=== PATIENT | female | born 1970 | race Caucasian/White ===

== ENCOUNTER → 2018-05-28 | Outpatient (CLI) | payer BC ==
[~2018-05-28] MED LIST: ACHD5005 PO; CYCL10TA9 PO; LVT.1T PO
--- NOTE | 2018-05-28 18:32 | Diagnostic Imaging Report ---
EXAMINATION: Bilateral knees. INDICATION: Primary osteoarthritis. FINDINGS: Three views of each knee joint were obtained. There are no prior studies available for comparison. There is no fracture, dislocation, or acute bony abnormality evident. The knee joints are fairly well maintained. There may be mild narrowing of the medial compartments and the patellofemoral spaces bilaterally. The soft tissues are unremarkable. IMPRESSION: 1. There is no evidence for an acute bony abnormality of either knee joint. 2. There is mild degenerative disease involving the medial compartments and patellofemoral spaces of each knee. Dictated by: Dictated on workstation # [id number]
== END ==
LOC: RAD FS 15:39
PROVIDERS: ATTEND Internal Medicine Rheumatology
DX: M17.0 Bilateral primary osteoarthritis of knee (principal)

== ENCOUNTER 2018-11-07 10:40 | Emergency (ER) | payer BC ==
[~2018-11-07] VITALS: Ht 162.6 cm; Wt 114.3 kg
--- OUTSIDE RECORDS SUMMARY | 2018-11-07 11:04 | XMS REPORT ---
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, Active 470140522 Problem Systemic lupus erythematosus M32.9 Sep, Active 44385662 ALLERGIES No Known Allergies ENCOUNTERS Encounter Location Date Diagnosis [address] [address] Jun, Morbid obesity E66.01 ; Impacted cerumen of both ears H61.23 ; Otalgia of right ear H92.01 ; Hypothyroidism E03.9 ; Systemic lupus erythematosus M32.9 and Urticarial vasculitis M31.[address] [address] May, Hypothyroidism, unspecified type E03.9 [facility] [address] [address] May, [address] [address] May, Hyperthyroidism E05.90 [facility] [address] [address] May, Hyperthyroidism E05.90 [facility] [address] [address] Mar, [facility] [id number] [place] [address] Mar, [facility] [address] [facility] [id number] [place] [address] August, [facility] [address] [facility] [id number] [address] Sep, IMMUNIZATIONS No Known Immunizations SOCIAL HISTORY Never Assessed REASON FOR VISIT Right Ear Pain, Bilat Leg Swelling/Knee Pain PLAN OF CARE Activity Details Follow Up prn Reason: VITAL SIGNS Height [id number] in 2018-06-26 Weight 265lb lbs 2018-06-26 BMI 45.46 kg/m2 2018-06-26 Blood pressure systolic 120 mmHg 2018-06-26 Blood pressure diastolic 84 mmHg 2018-06-26 MEDICATIONS Medication Instructions Dosage Frequency Start Date End Date Duration Status Ibuprofen 800 MG Apr, Active Synthroid 200 MCG Orally Once a day 1 tablet on an empty stomach in the morning 24h May, 30 day(s) Active Folic Acid 1 MG Orally Once a day 1 tablet 24h 30 day(s) Active Methotrexate 2.5 MG as directed Active Citalopram Hydrobromide 20 MG TAKE 1 TABLET BY MOUTH ONCE DAILY AT BEDTIME 30 Active RESULTS No Results PROCEDURES Procedure Date Ordered Result Body Site EAR IRRIGATION June 26, 2018 INSTRUCTIONS MEDICATIONS ADMINISTERED No Known Medications MEDICAL (GENERAL) HISTORY Type Description Date Medical History Systemic lupus erythematosus Medical History Hypothyroidism Medical History Urticarial vasculitis Medical History Hyperthyroidism
[2018-11-07] MEDS ORDERED: LORazepam 0.5 MG (ATIVAN) TABLET PO STA (11:42)
[2018-11-07 12:27] LABS: BASOPHILS % (AUTO) 1 % (0-10); EOSINOPHILS % (AUTO) 0 % (0-10); HEMATOCRIT 35 % (35-52); HEMOGLOBIN 10.9 G/DL (11.5-16.0); LYMPHOCYTES # (AUTO) 1.5 X 10^3 (1.0-4.0); LYMPHOCYTES % (AUTO) 31 % (12-44); MEAN CORPUSCULAR HEMOGLOBIN 29 PG (25-34); MEAN CORPUSCULAR HGB CONC 31 G/DL (32-36); MEAN CORPUSCULAR VOLUME 92 FL (80-99); MEAN PLATELET VOLUME 9.5 FL (7.4-10.4); MONOCYTES # (AUTO) 0.2 X 10^3 (0.0-1.0); MONOCYTES % (AUTO) 3 % (0-12); NEUTROPHILS # (AUTO) 3.2 X 10^3 (1.8-7.8); NEUTROPHILS % (AUTO) 65 % (42-75); PLATELET COUNT 255 10^3/uL (130-400); RED CELL DISTRIBUTION WIDTH 19.1 % (10.0-14.5); WHITE BLOOD COUNT 4.9 10^3/uL (4.3-11.0)
[2018-11-07] MEDS ORDERED: methylPREDNISolone 125 MG (Solu-MEDROL) VIAL IVP ONE (12:45)
--- NOTE | 2018-11-07 12:45 | ED Integumentary General ---
General Chief Complaint: Skin/Wound Problems Stated Complaint: YEE FOOT BLISTERS Nursing Triage Note: PT HAS LUPUS AND REPORTS A "FLARE UP" PT IS ON METHOTREXATE AND TOOK IT LAST PM. Source: patient Exam Limitations: no limitations History of Present Illness Date Seen by Provider: Nov 07, 2018 Time Seen by Provider: 11:00 Initial Comments Patient is a 48-year-old female with history of lupus who presents with painful blisters to bilateral lower extremities spinning 3 days ago. Patient's currently on weekly methotrexate, azathioprine and completed a course of steroids 1 week ago. .. Blisters painful touch. There is no surrounding cellulitis or skin softening. She also was treated recently for urinary tract infection with Macrobid. Patient has fever chills, nausea vomiting sweats, flank pain, urinary frequency urgency dysuria hematuria. No other acute symptoms or complaints. 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 [facility] Timing/Duration: week Severity: moderate Location: feet, extremities Possible Cause: no cause identified Associated Symptoms: blisters Allergies and Home Medications Allergies Coded Allergies: No Known Drug Allergies (Unverified , 09/27/11) Home Medications Cyclobenzaprine Hcl 10 Mg Tablet, 1 EACH PO HS, (Reported) Hydrocodone Bit/Acetaminophen 1 Each Tablet, 1 EACH PO HS, (Reported) Levothyroxine Sodium 100 Mcg Tablet, 175 MG PO DAILY, (Reported) Patient Home Medication List Home Medication List Reviewed: Yes Review of Systems Review of Systems Constitutional: no symptoms reported EENTM: no symptoms reported Respiratory: no symptoms reported, dyspnea on exertion Gastrointestinal: no symptoms reported Genitourinary: no symptoms reported Musculoskeletal: see HPI Skin: see HPI, other Psychiatric/Neurological: See HPI Endocrine: See HPI Hematologic/Lymphatic: See HPI Past Glrrpan-Ywapwf-Xydhvk Hx Past Med/Social Hx: Reviewed Nursing Past Med/Soc Hx Patient Social History Alcohol Use: Denies Use Recreational Drug Use: No Smoking Status: Current Everyday Smoker Type Used: Cigarettes 2nd Hand Smoke Exposure: No Recent Foreign Travel: No Contact w/Someone Who Travel: No Recent Infectious Disease Expo: No Recent Hopitalizations: No Physical Abuse: No Sexual Abuse: No Fear: No Seasonal Allergies Seasonal Allergies: No Past Medical History Surgeries: No Respiratory: No Cardiac: No Neurological: No Reproductive Disorders: No Sexually Transmitted Disease: No Genitourinary: No Gastrointestinal: Yes Gastroesophageal Reflux Musculoskeletal: Yes (ARTHRITIS) Endocrine: Yes Lupus HEENT: No Cancer: No Psychosocial: No Integumentary: Yes Recent Skin Changes Blood Disorders: No Physical Exam Vital Signs Vital Signs - First Documented 11/07/18 11:11 Temp 98.0 Pulse 95 Resp 18 B/P (MAP) 141/92 (108) Capillary Refill : Less Than 3 Seconds General Appearance: WD/WN, no apparent distress HEENT: PERRL/EOMI, normal ENT inspection Neck: non-tender, full range of motion, supple Cardiovascular: normal peripheral pulses, regular rate, rhythm Respiratory: chest non-tender, lungs clear, normal breath sounds Gastrointestinal: normal bowel sounds, non tender, soft Back: normal inspection Extremities: normal range of motion 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, no motor/sensory deficits, oriented x 3 Skin: other (extensive blistering to bilateral lower extremities including the dorsum of feet, no surrounding cellulitis, tissue sloughing or drainage.) Progress/Results/Core Measures Results/Orders Lab Results Laboratory Tests Test 11/07/18 12:09 Range/Units White Blood Count 4.9 4.3-11.0 10^3/uL Red Blood Count 3.78 L 4.35-5.85 10^6/uL Hemoglobin 10.9 L 11.5-16.0 G/DL Hematocrit 35 35-52 % Mean Corpuscular Volume 92 80-99 FL Mean Corpuscular Hemoglobin 29 25-34 PG Mean Corpuscular Hemoglobin Concent 31 L 32-36 G/DL Red Cell Distribution Width 19.1 H 10.0-14.5 % Platelet Count 255 130-400 10^3/uL Mean Platelet Volume 9.5 7.4-10.4 FL Neutrophils (%) (Auto) 65 42-75 % Lymphocytes (%) (Auto) 31 12-44 % Monocytes (%) (Auto) 3 0-12 % Eosinophils (%) (Auto) 0 0-10 % Basophils (%) (Auto) 1 0-10 % Neutrophils # (Auto) 3.2 1.8-7.8 X 10^3 Lymphocytes # (Auto) 1.5 1.0-4.0 X 10^3 Monocytes # (Auto) 0.2 0.0-1.0 X 10^3 Eosinophils # (Auto) 0.0 0.0-0.3 10^3/uL Basophils # (Auto) 0.0 0.0-0.1 10^3/uL My Orders Orders - HENNA PULIDO DO Cbc With Automated Diff (11/07/18 11:18) Comprehensive Metabolic Panel (11/07/18 11:18) Hcg,Qualitative Serum (11/07/18 11:31) Blood Culture (11/07/18 11:31) Hs C Reactive Protein (11/07/18 11:36) Blood Culture (11/07/18 11:36) Lorazepam Tablet (Ativan Tablet) (11/07/18 11:42) Methylprednisolone Sod Succ (Solu-Medrol (11/07/18 12:45) Vital Signs/I&O 11/07/18 11:11 Temp 98.0 Pulse 95 Resp 18 B/P (MAP) 141/92 (108) Blood Pressure Mean: 108 Departure Communication (Admissions) Suspect lupus flare versus medication reaction.IV steroids given. No clear source of infection. Will transfer to [facility] for patient admission and rheumatology consult. Impression Primary Impression: Skin bulla Disposition: XFER SHT-TRM HOSP Condition: Stable Transfer Method of Transfer: EMS Departure-Patient Inst. Referrals: CIPRIANO SWIFT MD (PCP/Family) Primary Care Physician HENNA PULIDO DO Nov 07, 2018 12:45
[2018-11-07 12:46] LABS: ALANINE AMINOTRANSFERASE 8 U/L (0-55); ALBUMIN 3.6 GM/DL (3.2-4.5); ALKALINE PHOSPHATASE 73 U/L (40-136); BILIRUBIN,TOTAL 0.2 MG/DL (0.1-1.0); BUN/CREATININE RATIO 9; CALCIUM 8.5 MG/DL (8.5-10.1); CARBON DIOXIDE 24 MMOL/L (21-32); CHLORIDE 101 MMOL/L (98-107); GFR ESTIMATED > 60; GLUCOSE 98 MG/DL (70-105); POTASSIUM 3.6 MMOL/L (3.6-5.0); SODIUM 139 MMOL/L (135-145); TOTAL PROTEIN 7.6 GM/DL (6.4-8.2)
--- NOTE | 2018-11-07 14:33 | NUR ---
BARBARA NICOLAS BANNER 7118, NA CORTES FOR REPORT AT [phone].
[2018-11-07 15:05] VITALS: BP 135/79
[2018-11-07 15:06] VITALS: BP 135/79
== END 2018-11-07 15:13 | disposition short-term general hospital (02) ==
LOC: EDUNIT# 10:40 → ER FS 10:42
DX: R23.8 Other skin changes (principal); M32.9 Systemic lupus erythematosus, unspecified; K21.9 Gastro-esophageal reflux disease without esophagitis; F17.210 Nicotine dependence, cigarettes, uncomplicated
CPT/HCPCS: 36415; 80053; 84703; 85025; 86141; 87040; 96374

== ENCOUNTER 2019-02-27 00:53 | Day surgery (SDC) | payer BC ==
[2019-02-27] VITALS (9 sets, daily range): BP systolic 94–123; BP diastolic 55–80
[~2019-02-27] VITALS: Ht 162.5 cm; Wt 114.8 kg
[2019-02-27] MEDS ORDERED: morphine INJ 10 MG/ML 1ML (SYR OR VIAL) IVP STA (01:27)
[2019-02-27 01:29] LABS: BASOPHILS % (AUTO) 0 % (0-10); EOSINOPHILS % (AUTO) 0 % (0-10); HEMATOCRIT 39 % (35-52); HEMOGLOBIN 12.7 G/DL (11.5-16.0); LYMPHOCYTES # (AUTO) 0.4 X 10^3 (1.0-4.0); LYMPHOCYTES % (AUTO) 6 % (12-44); MEAN CORPUSCULAR HEMOGLOBIN 29 PG (25-34); MEAN CORPUSCULAR HGB CONC 32 G/DL (32-36); MEAN CORPUSCULAR VOLUME 89 FL (80-99); MEAN PLATELET VOLUME 8.8 FL (7.4-10.4); MONOCYTES # (AUTO) 0.2 X 10^3 (0.0-1.0); MONOCYTES % (AUTO) 2 % (0-12); NEUTROPHILS # (AUTO) 6.2 X 10^3 (1.8-7.8); NEUTROPHILS % (AUTO) 91 % (42-75); PLATELET COUNT 239 10^3/uL (130-400); RED CELL DISTRIBUTION WIDTH 17.3 % (10.0-14.5); WHITE BLOOD COUNT 6.8 10^3/uL (4.3-11.0)
[2019-02-27] MEDS ORDERED: HOLD METFORMIN - RECEIVED CONTRAST 20 ML VIAL IV SCH (01:30)
[2019-02-27] MEDS ORDERED: IOHEXOL 350 MG/ML 100 ML (OMNIPAQUE 350) VIAL IV ONE (01:30)
[2019-02-27] MEDS ORDERED: ONDANSETRON 4 MG/2 ML (SDV) Z0FRAN IVP ONE (01:30)
[2019-02-27] MEDS ORDERED: NS 100 ML (IVPB) BAG IV ONE (01:30)
[2019-02-27] MEDS ORDERED: NS IV 1000 ML 1,000 ML IV SCH (01:30)
--- NOTE | 2019-02-27 01:38 | ED Abdominal Pain ---
General Chief Complaint: Abdominal/GI Problems Stated Complaint: ABD PAIN Nursing Triage Note: PT TO ROOM FS01 VIA W/C WITH C/O ABD PAIN STARTING AT 1700 YESTERDAY. PT REPORTS "SEVERE, SEVERE, SEVERE" ABD PAIN RATING PAIN 20/10 ON A 0/10 PAIN SCALE. PT REPORTS HAVING A HIGH TOLERANCE FOR PAIN AND SHE "CAN'T HANDLE THIS". PT REPORTS HAVING LUPUS AND HAS HAD "MULTIPLE PANIC ATTACKS" THIS EVENING BECAUSE OF THE PAIN. PT REPORTS SHIVERING AND FEELING COLD. Sepsis Screen: No Definite Risk Source of Information: Patient Exam Limitations: No Limitations History of Present Illness Date Seen by Provider: Feb 27, 2019 Time Seen by Provider: 01:30 Initial Comments The patient is a 48-year-old female who presents for abdominal pain which started approximately 8 hours ago. She states the pain began after she was at a store and her children were misbehaving. She states that she has also had multiple panic attacks this evening. States that after getting home from the store she was shivering and felt cold. She reports some pain to the right lateral abdomen which is now radiating to the right lower quadrant. She has had a kidney stone in the past and states this feels somewhat similar. She reports a history of lupus as well. She is alert and oriented 4, appears anxious, but is in no apparent distress. She denies fever, rectal bleeding, pelvic pain/bleeding/discharge, chest pain or shortness of breath, palpitations, diarrhea, or syncope. Severity/Quality: Severe Location: RLQ Radiation: No Radiation Activities at Onset: None Associated Symptoms: Fever/Chills (chills) Allergies and Home Medications Allergies Coded Allergies: No Known Drug Allergies (Unverified , 09/27/11) Home Medications Cyclobenzaprine Hcl 10 Mg Tablet, 1 EACH PO HS, (Reported) Hydrocodone Bit/Acetaminophen 1 Each Tablet, 1 EACH PO HS, (Reported) Levothyroxine Sodium 100 Mcg Tablet, 175 MG PO DAILY, (Reported) Patient Home Medication List Home Medication List Reviewed: Yes Review of Systems Review of Systems Constitutional: no symptoms reported EENTM: No Symptoms Reported Respiratory: No Symptoms Reported Cardiovascular: No Symptoms Reported Gastrointestinal: Abdominal Pain Genitourinary: No Symptoms Reported Musculoskeletal: no symptoms reported Skin: no symptoms reported Psychiatric/Neurological: No Symptoms Reported Endocrine: No Symptoms Reported Hematologic/Lymphatic: No Symptoms Reported All Other Systems Reviewed Negative Unless Noted: Yes Past Vbntbpi-Sdfhds-Bgkeit Hx Past Med/Social Hx: Reviewed Nursing Past Med/Soc Hx Patient Social History Alcohol Use: Denies Use Recreational Drug Use: No Smoking Status: Current Everyday Smoker Type Used: Cigarettes 2nd Hand Smoke Exposure: No Recent Foreign Travel: No Contact w/Someone Who Travel: No Recent Infectious Disease Expo: No Recent Hopitalizations: No Physical Abuse: No Sexual Abuse: No Mistreated: No Fear: No Seasonal Allergies Seasonal Allergies: No Past Medical History Surgeries: Yes (C SECSION X3) Adenoidectomy, Tonsillectomy Respiratory: No Cardiac: No Neurological: No Reproductive Disorders: No Sexually Transmitted Disease: No Genitourinary: No Gastrointestinal: Yes Gastroesophageal Reflux Musculoskeletal: Yes (ARTHRITIS) Endocrine: Yes Lupus HEENT: No Cancer: No Psychosocial: Yes Anxiety Integumentary: Yes (LUPUS) Recent Skin Changes Blood Disorders: No Physical Exam Vital Signs Vital Signs - First Documented 02/27/19 01:03 Temp 36.3 Pulse 121 Resp 19 B/P (MAP) 112/70 (84) O2 Delivery Room Air Capillary Refill : Less Than 3 Seconds Height/Weight/BMI Height: 5'4.00" Weight: 252lbs. oz. 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, no motor/sensory deficits, alert, normal mood/affect, oriented x 3 Skin: normal color, warm/dry Progress/Results/Core Measures Results/Orders Lab Results Laboratory Tests Test 02/27/19 01:15 02/27/19 01:50 Range/Units White Blood Count 6.8 4.3-11.0 10^3/uL Red Blood Count 4.43 4.35-5.85 10^6/uL Hemoglobin 12.7 11.5-16.0 G/DL Hematocrit 39 35-52 % Mean Corpuscular Volume 89 80-99 FL Mean Corpuscular Hemoglobin 29 25-34 PG Mean Corpuscular Hemoglobin Concent 32 32-36 G/DL Red Cell Distribution Width 17.3 H 10.0-14.5 % Platelet Count 239 130-400 10^3/uL Mean Platelet Volume 8.8 7.4-10.4 FL Neutrophils (%) (Auto) 91 H 42-75 % Lymphocytes (%) (Auto) 6 L 12-44 % Monocytes (%) (Auto) 2 0-12 % Eosinophils (%) (Auto) 0 0-10 % Basophils (%) (Auto) 0 0-10 % Neutrophils # (Auto) 6.2 1.8-7.8 X 10^3 Lymphocytes # (Auto) 0.4 L 1.0-4.0 X 10^3 Monocytes # (Auto) 0.2 0.0-1.0 X 10^3 Eosinophils # (Auto) 0.0 0.0-0.3 10^3/uL Basophils # (Auto) 0.0 0.0-0.1 10^3/uL Neutrophils % (Manual) 82 % Lymphocytes % (Manual) 13 % Band Neutrophils 5 % Microcytosis SLIGHT Sodium Level 139 135-145 MMOL/L Potassium Level 3.6 3.6-5.0 MMOL/L Chloride Level 102 98-107 MMOL/L Carbon Dioxide Level 22 21-32 MMOL/L Anion Gap 15 H 5-14 MMOL/L Blood Urea Nitrogen 9 7-18 MG/DL Creatinine 1.18 0.60-1.30 MG/DL Estimat Glomerular Filtration Rate 49 BUN/Creatinine Ratio 8 Glucose Level 142 H 70-105 MG/DL Calcium Level 8.3 L 8.5-10.1 MG/DL Corrected Calcium 8.6 8.5-10.1 MG/DL Total Bilirubin 0.3 0.1-1.0 MG/DL Aspartate Amino Transf (AST/SGOT) 20 5-34 U/L Alanine Aminotransferase (ALT/SGPT) 5 0-55 U/L Alkaline Phosphatase 52 40-136 U/L Total Protein 8.5 H 6.4-8.2 GM/DL Albumin 3.6 3.2-4.5 GM/DL Lipase 18 8-78 U/L Urine Color YELLOW Urine Clarity CLOUDY Urine pH 5.5 5-9 Urine Specific [place] 1.025 H 1.016-1.022 Urine Protein 1+ H NEGATIVE Urine Glucose (UA) NEGATIVE NEGATIVE Urine Ketones NEGATIVE NEGATIVE Urine Nitrite NEGATIVE NEGATIVE Urine Bilirubin 1+ H NEGATIVE Urine Urobilinogen 1.0 < = 1.0 MG/DL Urine Leukocyte Esterase NEGATIVE NEGATIVE Urine RBC (Auto) 3+ H NEGATIVE Urine RBC NONE /HPF Urine WBC NONE /HPF Urine Squamous Epithelial Cells TNTC H /HPF Urine Crystals NONE /LPF Urine Bacteria NEGATIVE /HPF Urine Casts NONE /LPF Urine Mucus NEGATIVE /LPF Urine Culture Indicated NO My Orders Orders - ELIZABETH MOJICA DO Ed Iv/Invasive Line Start (02/27/19 01:19) Comprehensive Metabolic Panel (02/27/19:22) Lipase (02/27/19:22) Ua Culture If Indicated (02/27/19:22) Cbc With Automated Diff (02/27/19 01:22) Ns Iv 1000 Ml (Sodium Chloride 0.9%) (02/27/19 01:30) Urine Bedside (02/27/19 01:22) Morphine Injection (Morphine Injection (02/27/19 01:27) Ondansetron Injection (Zofran Injectio (02/27/19 01:30) Manual Differential (02/27/19 01:15) Iohexol Injection (Omnipaque 350 Mg/Ml 1 (02/27/19 01:30) Received Contrast (Hold Metformin- Contr (02/27/19 01:30) Ns (Ivpb) (Sodium Chloride 0.9% Ivpb Bag (02/27/19 01:30) Ct Abdomen/Pelvis W Wo (02/27/19 01:39) Lorazepam Injection (Ativan Injection) (02/27/19 01:58) Lorazepam Injection (Ativan Injection) (02/27/19 02:00) Medications Given in ED Current Medications Medications Dose Ordered Sig/Bernarda Route Start Time Stop Time Status Last Admin Dose Admin Iohexol 100 ml ONCE ONCE IV 02/27/19 01:30 02/27/19 01:31 DC 02/27/19 02:08 100 ML Lorazepam 1 mg ONCE ONCE IVP 02/27/19 02:00 02/27/19 02:02 DC 02/27/19 02:04 1 MG Ondansetron HCl 4 mg ONCE ONCE IVP 02/27/19 01:30 02/27/19 01:31 DC 02/27/19 01:35 4 MG Sodium Chloride 100 ml ONCE ONCE IV 02/27/19 01:30 02/27/19 01:31 DC 02/27/19 02:08 100 ML Vital Signs/I&O 02/27/19 01:03 Temp 36.3 Pulse 121 Resp 19 B/P (MAP) 112/70 (84) O2 Delivery Room Air Blood Pressure Mean: 84 POS Progress Progress Note : Progress Note @0314 - case was discussed with the radiologist who feels that acute appendicitis is likely. She states that duodenitis is also likely present as is some questionable leading in the right lower quadrant. The patient is tender in this area and she still has her appendix. She is agreeable to admission at [facility]. Dr. Velasquez, general surgery, accepts the admission. Departure Communication (Admissions) Time/Spoke to Admitting Phy: 03:14 Dr. Velasquez (general surgery) accepts the admission Impression Primary Impression: Acute appendicitis Additional Impressions: RLQ abdominal pain Abnormal CT of the abdomen Disposition: ADMITTED INPATIENT Condition: Stable Admissions Decision to Admit Reason: Admit from ER (General) Decision to Admit/Date: Feb 27, 2019 Time/Decision to Admit Time: 03:15 Departure-Patient Inst. Referrals: CIPRIANO SWIFT MD (PCP/Family) Primary Care Physician ELIZABETH MOJICA DO Feb 27, 2019 01:38 POS
[2019-02-27 01:54] LABS: ALBUMIN 3.6 GM/DL (3.2-4.5); BILIRUBIN,TOTAL 0.3 MG/DL (0.1-1.0); CALCIUM 8.3 MG/DL (8.5-10.1); CREATININE SERUM 1.18 MG/DL (0.60-1.30); POTASSIUM 3.6 MMOL/L (3.6-5.0); TOTAL PROTEIN 8.5 GM/DL (6.4-8.2)
[2019-02-27] MEDS ORDERED: LORazepam INJ 2 MG/ML (ATIVAN) VIAL ONE (01:58)
[2019-02-27 01:59] LABS: CLARITY,URINE CLOUDY; COLOR,URINE YELLOW; GLUCOSE, URINE (UA) NEGATIVE (NEGATIVE); KETONES,URINE NEGATIVE (NEGATIVE); LEUKOCYTE ESTERASE ,URINE NEGATIVE (NEGATIVE); NITRITE,URINE NEGATIVE (NEGATIVE); PH,URINE 5.5 (5-9); PROTEIN,URINE 1+ (NEGATIVE)
[2019-02-27] MEDS ORDERED: LORazepam INJ 2 MG/ML (ATIVAN) VIAL IVP ONE (02:00)
[2019-02-27 02:10] LABS: BAND NEUTROPHILS 5 %; LYMPHOCYTES % (MANUAL) 13 %; MICROCYTOSIS SLIGHT; NEUTROPHILS % (MANUAL) 82 %
[2019-02-27 02:12] LABS: BACTERIA,URINE NEGATIVE /HPF; BILIRUBIN,URINE 1+ (NEGATIVE)
[2019-02-27 02:13] LABS: SQUAMOUS EPITHELIAL CELL,UR TNTC /HPF
[2019-02-27] MEDS ORDERED: NS IV 1000 ML 1,000 ML IV ONE (03:30)
[2019-02-27] MEDS ORDERED: PIPERACILLIN/TAZOBACTAM (BULK) 4.5 GM in NS (IVPB) 100 ML IV ONE (03:30)
[2019-02-27] MEDS ORDERED: NS (IVPB) 100 ML ONE (03:43)
[2019-02-27] MEDS ORDERED: PIPERACILLIN/TAZO 4.5 GM VIAL (ZOSYN) IV ONE (03:43)
--- NOTE | 2019-02-27 04:39 | NUR ---
IAN WORTHINGTON admitted to room 431-1, with an admitting diagnosis of APPENDICITIS, NATALIYA , on 02/27/19 from [facility] [place] via [facility], accompanied by STAFF AND FRIEND. IAN WORTHINGTON introduced to surroundings, call light, bed controls, phone, TV, temperature control, lights, meal times, smoking policy, visitor policy, side rail policy, bathrooms and showers. Patient Rights given to patient in the handbook.IAN WORTHINGTON verbalizes understanding that [facility] is not responsible for the loss or damage to any personal effects or valuables that are kept in the patients posession during their hospitalization.
--- NOTE | 2019-02-27 04:50 | NUR ---
PT. COMPLAINING OF A LOT OF PAIN, HR [address] OGLESBY NOTIFIED, NEW ORDERS RECEIVED: DILAUDID 0.5MG IV Q1HR PRN PAIN, CHANGE IVF TO LR @ 150 WILL CONTINUE TO MONITOR.
[2019-02-27] MEDS ORDERED: HYDROmorphone 2 MG/ML VIAL (DILAUDID) IV PRN (05:00)
[2019-02-27] MEDS: LACTATED RINGERS 1,000 ML IV SCH ×2 (05:01→13:51)
--- NOTE | 2019-02-27 07:41 | Consultation - Surgery ---
ELIZABETH RAMIREZ MED STUDENT 02/27/19 0741: History of Present Illness History of Present Illness Patient Consulted On(pat/time) 02/27/19 07:36 Date Seen by Provider: Feb 27, 2019 Time Seen by Provider: 06:15 History of Present Illness When seen today Ms. Tamez was tired, on dilauded, fell asleep multiple times. Reports having sudden onset of tight, pressure like pain she compares to gas in her upper R side and back yesterday, which she now feels in her RLQ. Reports the pain is a 20/10, 10/10 with pain medication. Also reports having alternating chills and warmth, as well as nausea and bloating. CT scan shows inflammatory changes in abdomen most pronounced in RLQ, possibility of appendicitis in differential. Also raised concern for active bleeding in hyperdense area adjacent to uterus, and abnormal wall thickening and inflammatory changes of the duodenum with duodenal diverticulum. Allergies and Home Medications Allergies Coded Allergies: No Known Drug Allergies (Unverified , 09/27/11) Home Medications Cyclobenzaprine Hcl 10 Mg Tablet, 1 EACH PO HS, (Reported) Hydrocodone Bit/Acetaminophen 1 Each Tablet, 1 EACH PO HS, (Reported) Levothyroxine Sodium 100 Mcg Tablet, 175 MG PO DAILY, (Reported) Past Jfbdtew-Hdlupt-Bdfcwk Hx Patient Social History Alcohol Use: Denies Use Recreational Drug Use: No Smoking Status: Current Everyday Smoker (10 years) Cigarettes Per Day: 6 Type Used: Cigarettes 2nd Hand Smoke Exposure: No Recent Foreign Travel: No Contact w/Someone Who Travel: No Recent Infectious Disease Expo: No Recent Hopitalizations: No Seasonal Allergies Seasonal Allergies: No Surgeries History of Surgeries: Yes (C SECSION X3) Surgeries: Adenoidectomy, Section (three c-sections), Tonsillectomy Respiratory History of Respiratory Disorde: No Cardiovascular History of Cardiac Disorders: No Neurological History of Neurological Disord: No Reproductive System Hx Reproductive Disorders: No Sexually Transmitted Disease: No Genitourinary History of Genitourinary Disor: Yes Genitourinary Disorders: Kidney Stones Gastrointestinal History of Gastrointestinal Di: Yes Gastrointestinal Disorders: Gastroesophageal Reflux Musculoskeletal History of Musculoskeletal Dis: Yes (ARTHRITIS) Endocrine History of Endocrine Disorders: Yes Endocrine Disorders: Lupus HEENT History of HEENT Disorders: No Cancer History of Cancer: No Psychosocial History of Psychiatric Problem: Yes Behavioral Health Disorders: Anxiety Integumentary History of Skin or Integumenta: Yes (LUPUS) Skin/Integumentary Disorders: Recent Skin Changes Blood Transfusions History of Blood Disorders: No Family Medical History Family Medial History: Patient reports no known family medical history. Review of Systems-General Constitutional: chills, other (flushed) EENTM: No nose congestion, No throat pain Respiratory: No cough, No dyspnea on exertion Cardiovascular: No chest pain, No palpitations Gastrointestinal: abdominal pain (RLQ, hypogastric); No constipation, No diarrhea, No melena; nausea; No vomiting Genitourinary: dysuria; No hematuria Musculoskeletal: back pain (chronic), muscle weakness (rare thigh muscle weakness) Psychiatric/Neurological: Numbness (hands), Weakness (rare thigh muscle weaknes s) Physical Exam-General Problems Physical Exam Vital Signs Vital Signs - First Documented 02/27/19 02/27/19 01:03 04:07 Temp 36.3 Pulse 121 Resp 19 B/P (MAP) 112/70 (84) Pulse Ox 94 O2 Delivery Room Air O2 Flow Rate 1.00 Capillary Refill : Less Than 3 Seconds General Appearance: obese, other (on dilaudid, falling asleep) Neck: non-tender, supple, normal inspection Respiratory: lungs clear, normal breath sounds, no respiratory distress, no accessory muscle use Cardiovascular: normal peripheral pulses, regular rate, rhythm, no murmur Peripheral Pulses: 2+ Dorsalis Pedis (R), 2+ Left Dors-Pedis (L), 2+ Radial Pulses (R), 2+ Radial Pulses (L) Gastrointestinal: normal bowel sounds, non tender, soft, no organomegaly Extremities: no pedal edema, no calf tenderness Neurologic/Psychiatric: alert, normal mood/affect, oriented x 3 Skin: normal color, warm/dry Lymphatic: no adenopathy Data Review Labs Laboratory Tests 02/27/19 01:15: White Blood Count 6.8, Red Blood Count 4.43, Hemoglobin 12.7, Hematocrit 39, Mean Corpuscular Volume 89, Mean Corpuscular Hemoglobin 29, Mean Corpuscular Hemoglobin Concent 32, Red Cell Distribution Width 17.3H, Platelet Count 239, Mean Platelet Volume 8.8, Neutrophils (%) (Auto) 91H, Lymphocytes (%) (Auto) 6L, Monocytes (%) (Auto) 2, Eosinophils (%) (Auto) 0, Basophils (%) (Auto) 0, Neutrophils # (Auto) 6.2, Lymphocytes # (Auto) 0.4L, Monocytes # (Auto) 0.2, Eosinophils # (Auto) 0.0, Basophils # (Auto) 0.0, Neutrophils % (Manual) 82, Lymphocytes % (Manual) 13, Band Neutrophils 5, Microcytosis SLIGHT, Sodium Level 139, Potassium Level 3.6, Chloride Level 102, Carbon Dioxide Level 22, Anion Gap 15H, Blood Urea Nitrogen 9, Creatinine 1.18, Estimat Glomerular Filtration Rate 49, BUN/Creatinine Ratio 8, Glucose Level 142H, Calcium Level 8.3L, Corrected Calcium 8.6, Total Bilirubin 0.3, Aspartate Amino Transf (AST/SGOT) 20, Alanine Aminotransferase (ALT/SGPT) 5, Alkaline Phosphatase 52, Total Protein 8.5H, Albumin 3.6, Lipase 18 02/27/19 01:50: Urine Color YELLOW, Urine Clarity CLOUDY, Urine pH 5.5, Urine Specific [place] 1.025H, Urine Protein 1+H, Urine Glucose (UA) NEGATIVE, Urine Ketones NEGATIVE, Urine Nitrite NEGATIVE, Urine Bilirubin 1+H, Urine Urobilinogen 1.0, Urine Leukocyte Esterase NEGATIVE, Urine RBC (Auto) 3+H, Urine RBC NONE, Urine WBC NONE, Urine Squamous Epithelial Cells TNTCH, Urine Crystals NONE, Urine Bacteria NEGATIVE, Urine Casts NONE, Urine Mucus NEGATIVE, Urine Culture Indicated NO Assessment/Plan Assessment/Plan Admission Diagonsis RLQ abdominal pain, CT concerning for appendicitis Appendectomy planned for today Clinical Quality Measures DVT/VTE Risk/Contraindication: Risk Factor Score Per Nursin RFS Level Per Nursing on Admit: 3=High VARINDER OGLESBY DO 02/27/19 0949: History of Present Illness History of Present Illness Time Seen by Provider: 08:36 History of Present Illness HPI per ER: PT TO ROOM FS01 VIA W/C WITH C/O ABD PAIN STARTING AT 1700 YESTERDAY. PT REPORTS "SEVERE, SEVERE, SEVERE" ABD PAIN RATING PAIN 20/10 ON A 0/10 PAIN SCALE. PT REPORTS HAVING A HIGH TOLERANCE FOR PAIN AND SHE "CAN'T HANDLE THIS". PT REPORTS HAVING LUPUS AND HAS HAD "MULTIPLE PANIC ATTACKS" THIS EVENING BECAUSE OF THE PAIN. PT REPORTS SHIVERING AND FEELING COLD. The patient is a 48-year-old female who presents for abdominal pain which started approximately 8 hours ago. She states the pain began after she was at a store and her children were misbehaving. She states that she has also had multiple panic attacks this evening. States that after getting home from the store she was shivering and felt cold. She reports some pain to the right lateral abdomen which is now radiating to the right lower quadrant. She has had a kidney stone in the past and states this feels somewhat similar. She reports a history of lupus as well. She is alert and oriented 4, appears anxious, but is in no apparent distress. She denies fever, rectal bleeding, pelvic pain/bleeding/discharge, chest pain or shortness of breath, palpitations, diarrhea, or syncope. Severity/Quality: Severe Location: RLQ Radiation: No Radiation Activities at Onset: None Associated Symptoms: Fever/Chills (chills) When I saw her this morning her main complaint that she wanted something to drink and eat. She still had abdominal pain but well controlled with pain meds. She stated that in the past she has had reflux symptoms and burning. Allergies and Home Medications Allergies Coded Allergies: No Known Drug Allergies (Unverified , 09/27/11) Home Medications Cyclobenzaprine Hcl 10 Mg Tablet, 1 EACH PO HS, (Reported) Hydrocodone Bit/Acetaminophen 1 Each Tablet, 1 EACH PO HS, (Reported) Levothyroxine Sodium 100 Mcg Tablet, 175 MG PO DAILY, (Reported) Patient Home Medication List Home Medication List Reviewed: Yes Past Efgpukk-Bczwgq-Oiermo Hx Patient Social History Alcohol Use: Denies Use Family Medical History Significant Family History: Other Conditions/Hx (Pt is adopted and does not know any family hx) Family Medial History: Patient reports no known family medical history. Review of Systems-General Skin: No change in color, No change in hair/nails Psychiatric/Neurological: Anxiety Other pt denies any hx of abnormal bleeding or bruising Physical Exam-General Problems Physical Exam Eyes: Bilateral Eye PERRL, Bilateral Eye EOMI HEENT: pharynx normal; No scleral icterus (R), No scleral icterus (L) Respiratory: decreased breath sounds (at bases) Gastrointestinal: distended (but this may just be her normal); No guarding; tenderness (diffusely, but more in RLQ) Rectal: deferred Back: no CVA tenderness, no vertebral tenderness Lymphatic: no adenopathy (neck or axilla,?? small nodes in groin) Data Review Radiology CT ABDOMEN/PELVIS W WO PROCEDURE: CT abdomen and pelvis with and without contrast. TECHNIQUE: Precontrast acquisitions were acquired through the abdomen and pelvis. Multiple contiguous axial images were obtained through the abdomen and pelvis after the administration of intravenous contrast. Auto Exposure Controls were utilized during the CT exam to meet ALARA standards for radiation dose reduction. INDICATION: Started having abdominal pain around 1700 hours yesterday. Pain is severe. CORRELATION STUDY: None FINDINGS: Bibasilar atelectasis with trace pleural effusions. Liver, spleen, pancreas, gallbladder and adrenal glands unremarkable. Multiple nonobstructing bilateral renal stones. No hydronephrosis or definitive ureteral stone. The abdominal aorta normal in contour. A retro-aortic left renal vein, normal variant. There is a rather prominent wall thickening of the duodenum with presence of a duodenal diverticulum. There is surrounding haziness adjacent to the duodenum as well. No small bowel obstruction. Colon is relatively decompressed with mild severity fecal retention. Abnormal findings in the right lower quadrant. There is fluid and fat stranding in the retroperitoneum. There is a hyperdensity with contrast enhancements in the right lower quadrant adjacent to the uterus. Nonspecific but does raise concern for active bleeding. Small calcification also in the right adnexal region. The appendix is not definitively visualized. This is in the region of the more prominent area of inflammation. Additionally, there is thickening of the endometrium, may reflect blood products. Hypodense structure left ovary, suspect for cysts. There is prominent enlarged, iliac chain, inguinal and retroperitoneal lymph nodes, nonspecific. Osseous structures appearing unremarkable. IMPRESSION: 1. Inflammatory changes in the abdomen most pronounced in the right lower quadrant. 2. Hyperdense in the right lower quadrant adjacent to the uterus is nonspecific but does demonstrate suggestion of abnormal contrast enhancement, raising concern for active bleeding. 3. The appendix is not visualized. This is in the region of the more focal area of inflammatory changes and fluid. Possibility of appendicitis is in the differential. 4. Abnormal wall thickening and inflammatory changes of the duodenum with duodenal diverticulum. Some of this may be owing to under distention but does raise concern for duodenitis. A preliminary report was provided by [facility]. Assessment/Plan Assessment/Plan Assessment/Plan RLQ pain r/o appendicitis Free fluid in abdomen Renal lithiasis, non-obstructing Pt has non-specific but worrying findings on CT; could be acute appendicitis, but also could be perforated duodenum or something related to Uterus. After discussion with the patient the plan is to go to the OR for Laparoscopic Appendectomy, possible open and all other indicated procedures. Will get consent for that procedure, she is already on IV fluids, IV ABX, pain control and anti-emetics. She may need an EGD and colonscopy in the future. I think we need to figure out why she has all the inflammation in her abdomen and the best way to do that is go take a look. She agrees with this course of action. Supervisory-Addendum Brief Verification & Attestation Participated in pt care: history, MDM, physical Personally performed: exam, history, MDM Care discussed with: Medical Student Procedures: n/a Verification and Attestation of Medical Student E/M Service A medical student performed and documented this service in my presence. I reviewed and verified all information documented by the medical student and made modifications to such information, when appropriate. I personally performed the physical exam and medical decision making. Varinder Oglesby, Feb 27, 2019,09:55 ELIZABETH RAMIREZ MED STUDENT Feb 27, 2019 07:41 VARINDER GARCIA DO Feb 27, 2019 09:49 POS
--- NOTE | 2019-02-27 08:09 | Diagnostic Imaging Report ---
PROCEDURE: CT abdomen and pelvis with and without contrast. TECHNIQUE: Precontrast acquisitions were acquired through the abdomen and pelvis. Multiple contiguous axial images were obtained through the abdomen and pelvis after the administration of intravenous contrast. Auto Exposure Controls were utilized during the CT exam to meet ALARA standards for radiation dose reduction. INDICATION: Started having abdominal pain around 1700 hours yesterday. Pain is severe. CORRELATION STUDY: None FINDINGS: Bibasilar atelectasis with trace pleural effusions. Liver, spleen, pancreas, gallbladder and adrenal glands unremarkable. Multiple nonobstructing bilateral renal stones. No hydronephrosis or definitive ureteral stone. The abdominal aorta normal in contour. A retro-aortic left renal vein, normal variant. There is a rather prominent wall thickening of the duodenum with presence of a duodenal diverticulum. There is surrounding haziness adjacent to the duodenum as well. No small bowel obstruction. Colon is relatively decompressed with mild severity fecal retention. Abnormal findings in the right lower quadrant. There is fluid and fat stranding in the retroperitoneum. There is a hyperdensity with contrast enhancements in the right lower quadrant adjacent to the uterus. Nonspecific but does raise concern for active bleeding. Small calcification also in the right adnexal region. The appendix is not definitively visualized. This is in the region of the more prominent area of inflammation. Additionally, there is thickening of the endometrium, may reflect blood products. Hypodense structure left ovary, suspect for cysts. There is prominent enlarged, iliac chain, inguinal and retroperitoneal lymph nodes, nonspecific. Osseous structures appearing unremarkable. IMPRESSION: 1. Inflammatory changes in the abdomen most pronounced in the right lower quadrant. 2. Hyperdense in the right lower quadrant adjacent to the uterus is nonspecific but does demonstrate suggestion of abnormal contrast enhancement, raising concern for active bleeding. 3. The appendix is not visualized. This is in the region of the more focal area of inflammatory changes and fluid. Possibility of appendicitis is in the differential. 4. Abnormal wall thickening and inflammatory changes of the duodenum with duodenal diverticulum. Some of this may be owing to under distention but does raise concern for duodenitis. A preliminary report was provided by [facility]. Dictated by: Dictated on workstation # [id number]
[2019-02-27] MEDS ORDERED: METH2.5T PO (10:23)
[2019-02-27] MEDS ORDERED: LEVO200T6 PO (10:23)
[2019-02-27] MEDS ORDERED: CITA20TA9 PO (10:23)
[2019-02-27] MEDS ORDERED: IBUP-1780 PO (10:23)
[2019-02-27] MEDS ORDERED: BUP/EPI 0.5% 1:200,000 (MARCAINE) 10ML VIAL IJ ONE (10:28)
[2019-02-27] MEDS ORDERED: FOLI0.8T PO (10:29)
[2019-02-27] MEDS ORDERED: CELE-63 PO (10:29)
--- NOTE | 2019-02-27 10:30 | NUR ---
SPOKE WITH THE PATIENT ABOUT HER MEDICATIONS. SHE LISTED WHAT SHE IS TAKING AND I COMPARED IT WITH THE EXT MED HX. SHE FILLED IBU 800MG #60 FOR 20 DAYS RECENTLY HOWEVER STATES SHE DOES NOT TAKE IT BECAUSE SHE TAKES METHOTREXATE. SHE STATES SHE FILLS IT BECAUSE HER FAMILY USES IT. I DID NOT INCLUDE IT ON THE MED REC. SHE LAST FILLED CELEBREX 200MG #60 FOR 30 DAYS, SHE STATES SHE MAINLY TAKES THIS AT NIGHT BUT TAKES IT NEEDED AND THAT IS WHY IT IS PAST DUE FOR REFILL. SHE LAST FILLED FOLIC ACID 1MG #60 FOR 30 DAYS 11-10-18- SHE STATES SHE TAKES THIS ONCE DAILY AND HAS MOST RECENTLY PURCHASED IT OTC.
[2019-02-27] MEDS: LACTATED RINGERS 1,000 ML IV PRN ×3 (11:26→12:37)
[2019-02-27] MEDS ORDERED: SUCCINYLCHOLINE INJ 100 MG/5 ML SYR ONE (11:29)
[2019-02-27] MEDS ORDERED: ROCURONIUM 10 MG/ML 5 ML SYRINGE IV ONE (11:29)
[2019-02-27] MEDS ORDERED: proPOfol 200 MG/20 ML (DIPRIVAN) VIAL IV ONE (11:29)
[2019-02-27] MEDS ORDERED: ONDANSETRON 4 MG/2 ML (SDV) Z0FRAN ONE (11:29)
[2019-02-27] MEDS ORDERED: LIDOCAINE PF 2% 5 ML (XYLOCAINE) VIAL ONE (11:29)
[2019-02-27] MEDS ORDERED: fentaNYL INJECTION 100 MCG/2 ML AMP ONE (11:30)
[2019-02-27] MEDS ORDERED: MIDAZOLAM 2 MG/2 ML (VERSED) VIAL ONE (11:30)
[2019-02-27] MEDS ORDERED: PIPERACILLIN/TAZO 4.5 GM/NS 100 ML IV NR ×2 (11:30)
[2019-02-27] MEDS ORDERED: GLYCOPYRROLATE 0.2 MG/ML (ROBINUL) 2 ML VIAL ONE (12:21)
[2019-02-27] MEDS ORDERED: SEVOFLURANE (ULTANE) 15 ML INHAL SOLN ONE ×3 (12:21→12:49)
[2019-02-27] MEDS ORDERED: KETOROLAC 30 MG/ML VIAL ONE (12:21)
[2019-02-27] MEDS ORDERED: NEOSTIGMINE 3 MG/3 ML VIAL ONE (12:21)
--- NOTE | 2019-02-27 12:46 | Progress Note-Post Operative ---
Post-Operative Progess Note Surgeon (s)/Mycologist (s) Surgeon CORNELIA OGLESBY DO Mycologist: [place] Pre-Operative Diagnosis Appy, free fluid Post-Operative Diagnosis acute appy - retroperitoneal Procedure & Operative Findings Date of Procedure 02/27/19 Procedure Performed/Findings Lap Appy Anesthesia Type GET Estimated Blood Loss Estimated blood loss (mL): scant Specimens/Packing Specimens Removed CORNELIA Hubbard DO Feb 27, 2019 12:46 POS
[2019-02-27] MEDS ORDERED: RT-ALBUTEROL INHALER HFA (PROAIR HFA) 8.5 GM IH ONE (12:48)
[2019-02-27] MEDS ORDERED: ACHD5005 PO (12:48)
--- NOTE | 2019-02-27 12:49 | Discharge Inst-Surgical ---
Discharge Inst-Surgical Depart Medication/Instructions New, Converted or Re-Newed RX: RX Given to Pt/Family Patient Instructions Follow up Appt: Make appointment for 1 week. [phone] Instructions: No lifting greater than 20 pounds. No strenuous activity. May shower in 24 hours, no tub bath or soaking. Use incentive spirometer at home as directed. No Smoking Skin/Wound Care: May remove bandages in am. You need to leave the Dermabond on incision it will fall off on it's own. Symptoms to Report: Appetite Changes, Extremity Discoloration, Numbness/Tingling, Swelling Increased, Bleeding Excessive, Eyesight Changes, Pain Increased, Urine Color Change, Constipation(Persistent), Fever over 101 degree F, Pain/Pressure in chest, Urinating Difficulty, Cough Up/Vomit Blood, Heart Beat Irreg/Pounding, Pain/Pressure in jaw, Cramps in feet or legs, Lightheadedness, Pain/Pressure in shoulder, Diarrhea(Persistent), Memory Changes Suddenly, Questions/Concerns, Weight gain consecutive days, Dizziness/Fainting, Nausea/Vomiting, Shortness of Breath, Weight gain over 2 pounds If questions or concerns contact your physician Or seek help at emergency department. Activity Activity as Tolerated: Yes Activity Instructions: Avoid Stress to Incision Driving Instructions: No Driving/Refer to Dr. Marie Discharge Diet: No Restrictions Diet After 24 Hours: Clear Liquid if Nauseous If Any Problems/Questions/Issu: Contact Your Physician, Go to Emergency Room Skin/Wound Care Infection Signs and Symptoms: Increased Redness, Foul Odor of Wound, Increased Drainage, Skin Itchy or Has a Rash, Increased Swelling, Temperature Above 101 F Bathing Instructions: Shower Stitches/Kiersten/Dermabond Dis: Dermabond Ice Pack: Ice On and Off Site CORNELIA OGLESBY DO Feb 27, 2019 12:49 POS
[2019-02-27] MEDS ORDERED: HYDROcodone/APAP 5 MG/325 MG (LORTAB) TAB PO PRN (15:30)
[2019-02-27] MEDS ORDERED: PIPERACILLIN/TAZOBACTAM (BULK) 4.5 GM in NS (IVPB) 100 ML IV SCH (18:00)
--- NOTE | 2019-02-27 18:29 | OPERATIVE REPORT ---
DATE OF SERVICE: 02/27/2019 PREOPERATIVE DIAGNOSIS: Acute appendicitis, free fluid in the abdomen. POSTOPERATIVE DIAGNOSIS: Acute appendicitis retroperitoneal. SURGEON: Varinder Velasquez DO. ESOL TEACHER ASSISTANT: Adriel Arias DO. ANESTHESIA: General endotracheal tube. SPECIMEN: Appendix. BLOOD LOSS: Scant. FLUIDS: Per anesthesia. POSTOPERATIVE CONDITION: Stable. INDICATION FOR PROCEDURE: The patient is a 48-year-old female who has been having abdominal pain, mostly in right lower quadrant, had a lot of inflammation, free fluid, unsure what exactly was the cause, looked like there was some bleeding on the CAT scan. FINDINGS: The patient had what looked like retroperitoneal appendicitis. I did not see anything obvious in the abdomen, although may have some intermittent may have been retroperitoneal. She did also have cysts on the ovaries. PROCEDURE NOTE: After informed consent was obtained, the patient was brought to the operating room, placed on the operating table in supine position. She was sterilely prepped and draped in normal fashion. Local lidocaine was used to infiltrate the skin above the umbilicus and made an incision with #11 blade, carried down through the skin into subcutaneous tissue, deepened down to subcutaneous tissue with Bovie electrocautery down to the fascia. Fascia was incised with Bovie electrocautery, bluntly entered the abdomen, swept a finger around, placed limited trocar port under direct visualization. Created pneumoperitoneum, placed 2 more ports in normal fashion using local lidocaine, 11 blade for stab incision and Versed system, all done under direct visualization, one suprapubically and one left lower quadrant. Upon entry, noted a lot of yellowish fluid, possibly purulent fluid in the pelvis and right pericolic gutter. Took pictures of this, could see what looked like the tip of the appendix, it was retroperitoneal, started trying to free this up coming across and using some blunt dissection as well as the LigaSure to carefully come across this, took a while coming across the mesoappendix, freeing it up, so we could get to his appendix, which was just attached to the cecum. Able to visualize the cecum and actually visualized the terminal ileum and stay away from these areas. Once we had freed up all of the mesoappendix, I then switched to 5 mm camera, brought Endo-ÁLVARO and clamped across the base of appendix, clamped and fired, thereby transecting it and then took a picture, had good visualization of the staple line looked good and the cecum looked good as well as the ascending colon, irrigated with normal saline and suctioned this out, looked around, tried to look under the transverse colon and rest of the intestine looked good, but again could not see into the retroperitoneum, looked at the uterus, could see the small right ovary with a cyst, took a picture and then took a picture of a large left ovary, once the appendix was off of it, we placed a bag in the abdomen, placed the appendix in the bag and then removed this through the supraumbilical incision. Placed the port back in. Copiously irrigated and then at this point, after we had looked around, we could not see anything. I removed all ports under direct visualization, allowed pneumoperitoneum to escape. She had been in Trendelenburg and rotated left. She was then placed supine. Closed the supraumbilical incision, closing the fascia with 0 Vicryl [id number] suture, I then copiously irrigated all incisions with normal saline. Closed the 2 small 5 mm incisions with single interrupted 4-0 undyed Monocryl subcuticular stitch. Closed the supraumbilical incision with 3 interrupted 4-0 undyed Monocryl subcuticular stitches. Area was cleaned and dried and Dermabond as well as Band-Aids placed. The patient tolerated the procedure. Sponge, instrument and needle count correct at the end of the case. Dr. Arias helped on this case by making incisions, closing incisions, holding anatomy and helping to identify anatomy. Job ID: [id number] DocumentID: [id number] Dictated Date: 02/27/2019 12:43:58 Coding Spec Date: 02/27/2019 18:28:40 Dictated By: DO OMARI GRAHAM
--- NOTE | 2019-02-28 13:30 | Anesthesia-General Post-Op ---
General Patient Condition Mental Status/LOC: Same as Preop Cardiovascular: Satisfactory Nausea/Vomiting: Absent Respiratory: Satisfactory Pain: Controlled Complications: Absent Post Op Complications Complications None Follow Up Care/Instructions Patient Instructions None needed. Anesthesia/Patient Condition Patient Condition Patient is doing well, no complaints, stable vital signs, no apparent adverse anesthesia problems. No complications reported per nursing. ISAI FLORES CRNA Feb 28, 2019 13:30 POS
== END 2019-02-27 16:30 | disposition home or self-care (01) ==
LOC: EDUNIT# 00:53 → ER FS 00:54 → 4TH 03:10 → UNDOADMIN 03:10 → SDC 03:10 → 4TH 03:10 → SDC 16:30 → UNDODISIN 16:30
PROVIDERS: ATTEND Surgery
DX: K35.80 Unspecified acute appendicitis (principal); N83.201 Unspecified ovarian cyst, right side; K21.9 Gastro-esophageal reflux disease without esophagitis; M19.91 Primary osteoarthritis, unspecified site; F17.210 Nicotine dependence, cigarettes, uncomplicated; F41.0 Panic disorder [episodic paroxysmal anxiety]; E66.9 Obesity, unspecified; Z68.41 Body mass index [BMI] 40.0-44.9, adult; Z87.442 Personal history of urinary calculi; Z87.39 Personal history of other diseases of the musculoskeletal system and connective tissue; Z11.2 Encounter for screening for other bacterial diseases
CPT/HCPCS: 36415; 74178; 80053; 81000; 83690; 84703; 85007; 85027; 87081; 88304; 96361; 96374; 96375

== ENCOUNTER 2019-03-07 14:31 | Emergency (ER) | payer BC ==
[~2019-03-07] VITALS: Ht 162.5 cm; Wt 115.0 kg
[~2019-03-07 14:31] MED LIST changes: +CELE-63 PO; +CITA20TA9 PO; +FOLI0.8T PO; +IBUP-1780 PO; +LEVO200T6 PO; +METH2.5T PO
[2019-03-07] MEDS ORDERED: NS IV 1000 ML 1,000 ML IV STA (14:57)
[2019-03-07] MEDS ORDERED: ONDANSETRON 4 MG/2 ML (SDV) Z0FRAN IVP STA (14:57)
[2019-03-07 15:04] LABS: HCG,QUALITATIVE URINE NEGATIVE (NEGATIVE)
[2019-03-07 15:22] LABS: CLARITY,URINE SLT CLOUDY; COLOR,URINE DARK YELLOW; GLUCOSE, URINE (UA) NEGATIVE (NEGATIVE); KETONES,URINE NEGATIVE (NEGATIVE); NITRITE,URINE NEGATIVE (NEGATIVE); PROTEIN,URINE 2+ (NEGATIVE)
[2019-03-07 15:23] LABS: BACTERIA,URINE NEGATIVE /HPF; BILIRUBIN,URINE 1+ (NEGATIVE); GRANULAR CASTS,URINE RARE /LPF; LEUKOCYTE ESTERASE ,URINE NEGATIVE (NEGATIVE); WBC,URINE 0-2 /HPF
[2019-03-07 15:33] LABS: HEMATOCRIT 29 % (35-52); HEMOGLOBIN 9.7 G/DL (11.5-16.0); MEAN CORPUSCULAR HEMOGLOBIN 28 PG (25-34); MEAN CORPUSCULAR VOLUME 85 FL (80-99); WHITE BLOOD COUNT 0.6 10^3/uL (4.3-11.0)
[2019-03-07 15:34] LABS: BASOPHILS % (AUTO) 2 % (0-10); EOSINOPHILS % (AUTO) 0 % (0-10); LYMPHOCYTES % (AUTO) 51 % (12-44); MEAN CORPUSCULAR HGB CONC 28 G/DL (32-36); MEAN PLATELET VOLUME 10.8 FL (7.4-10.4); MONOCYTES % (AUTO) 11 % (0-12); NEUTROPHILS % (AUTO) 36 % (42-75); PLATELET COUNT 39 10^3/uL (130-400); RED CELL DISTRIBUTION WIDTH 17.1 % (10.0-14.5)
[2019-03-07 15:35] LABS: LYMPHOCYTES # (AUTO) 0.3 X 10^3 (1.0-4.0); MONOCYTES # (AUTO) 0.1 X 10^3 (0.0-1.0); NEUTROPHILS # (AUTO) 0.2 X 10^3 (1.8-7.8)
[2019-03-07] MEDS ORDERED: CATHETER FLUSH 10 ML SYR IV PRN (15:45)
[2019-03-07] MEDS ORDERED: HOLD METFORMIN - RECEIVED CONTRAST 20 ML VIAL IV SCH (15:45)
[2019-03-07] MEDS ORDERED: NS 100 ML (IVPB) BAG IV ONE (15:45)
[2019-03-07] MEDS ORDERED: IOHEXOL 350 MG/ML 150 ML (OMNIPAQUE 350) VIAL IV ONE (15:45)
[2019-03-07 15:50] LABS: ALBUMIN 2.5 GM/DL (3.2-4.5); BILIRUBIN,TOTAL 0.6 MG/DL (0.1-1.0); CALCIUM 7.5 MG/DL (8.5-10.1); CREATININE SERUM 1.2 MG/DL (0.60-1.30); POTASSIUM 3.2 MMOL/L (3.6-5.0)
[2019-03-07] MEDS ORDERED: LORazepam INJ 2 MG/ML (ATIVAN) VIAL IVP STA (15:51)
--- NOTE | 2019-03-07 15:51 | ED General ---
General Chief Complaint: Abdominal/GI Problems Stated Complaint: VOMITING Nursing Triage Note: Patient c/o nausea and vomiting for the past week. Reports that she has had this nausea and vomiting since her appendectomy last Saturday. She also states she is having swelling and weakness to bilateral lower extremities and her hands. The symptoms have also developed over the last 7 days. Nursing Sepsis Screen: Possible Severe Sepsis Risk Source of Information: Patient, Family History of Present Illness Date Seen by Provider: Mar 07, 2019 Time Seen by Provider: 14:49 Initial Comments 49 yo F presenting with increasing shortness of breath and fatigue as well as swelling in arms and legs since having appendectomy on Feb 27. She has had nausea and vomiting as well. she denies fever or chills. She has been having some pain with urination and wonders if she has a UTI. She does have a history of Lupus. She was having some abdominal distention too. She felt like everything was worsening over the last week and was tired of feeling so bad so she came in to the ED Allergies and Home Medications Allergies Coded Allergies: No Known Drug Allergies (Unverified , 09/27/11) Home Medications Celecoxib 200 Mg Capsule, 200 MG PO BID PRN for ARTHRITIS PAIN, (Reported) Citalopram Hydrobromide 20 Mg Tablet, 20 MG PO DAILY, (Reported) Folic Acid 0.8 Mg Tablet, 0.8 MG PO DAILY, (Reported) Hydrocodone Bit/Acetaminophen 1 Tab Tab, 1 TAB PO Q6H PRN for PAIN-MODERATE Prescribed by: CORNELIA OGLESBY on 02/27/19 1248 Levothyroxine Sodium 200 Mcg Tablet, 200 MCG PO DAILY, (Reported) Methotrexate Sodium 2.5 Mg Tablet, 17.5 MG PO Th, (Reported) TAKES 7 (2.5MG) TABLETS Patient Home Medication List Home Medication List Reviewed: Yes Review of Systems Review of Systems Constitutional: No chills, No fever; malaise, weakness (generalized) EENTM: No vision loss, No epistaxis, No nose congestion Respiratory: No cough; dyspnea on exertion Cardiovascular: No chest pain; edema (generalized), palpitations Gastrointestinal: abdominal pain (mild diffuse tenderness); No constipation, No diarrhea; nausea, vomiting Genitourinary: dysuria Musculoskeletal: muscle cramps Skin: dryness Psychiatric/Neurological: Anxiety, Weakness (general) Past Fvazvbg-Kashsf-Pkifli Hx Past Med/Social Hx: Reviewed Nursing Past Med/Soc Hx Patient Social History Alcohol Use: Denies Use Recreational Drug Use: No Type Used: Cigarettes 2nd Hand Smoke Exposure: No Recent Foreign Travel: No Contact w/Someone Who Travel: No Recent Infectious Disease Expo: No Recent Hopitalizations: No Physical Abuse: No Sexual Abuse: No Mistreated: No Fear: No Seasonal Allergies Seasonal Allergies: No Past Medical History Surgeries: Yes (C SECSION X3) Adenoidectomy, Appendectomy, Section, Tonsillectomy Respiratory: No Cardiac: No Neurological: No Reproductive Disorders: No Sexually Transmitted Disease: No Genitourinary: Yes Kidney Stones Gastrointestinal: Yes Gastroesophageal Reflux Musculoskeletal: Yes (ARTHRITIS) Endocrine: Yes Lupus HEENT: No Cancer: No Psychosocial: Yes Anxiety Integumentary: Yes (LUPUS) Recent Skin Changes Blood Disorders: No Family Medical History Patient reports no known family medical history. Other Conditions/Hx Physical Exam Vital Signs Vital Signs - First Documented 03/07/19 14:40 Temp 36.4 Pulse 127 Resp 22 B/P (MAP) 122/83 (96) Pulse Ox 96 O2 Delivery Room Air Capillary Refill : Less Than 3 Seconds Height, Weight, BMI Height: 5'4.00" Weight: 252lbs. oz. 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 Norm as Tested Skin: Warm/Dry Focused Exam Sepsis Stage: Sepsis Possible Source: Unknown Lactate Level 03/07/19 15:40: Lactic Acid Level 2.71*H 03/07/19 17:45: Lactic Acid Level 1.81 Time of Focused Exam: 17:45 Respiratory: Chest Non Tender, Lungs Clear, Normal Breath Sounds, No Accessory Muscle Use, No Respiratory Distress Cardiovascular: Normal Peripheral Pulses, Tachycardia Capillary Refill: Less Than 3 Seconds Peripheral Pulses: 2+ Dorsalis Pedis (R), 2+ Left Dors-Pedis (L), 2+ Radial Pulses (R), 2+ Radial Pulses (L) Skin: normal color, warm/dry Lactic Acid Level Within 3hrs of presentation: Admin fluids, Admin ABX, Blood cultures prior to ABX's, Focus exam, Lactate level Progress/Results/Core Measures Suspected Sepsis Recent Fever Within 48 Hours: No Infection Criteria Present: Suspected New Infection New/Unexplained Altered Menta: No Sepsis Screen: Possible Severe Sepsis Risk SIRS Temperature: Pulse: 127 Respiratory Rate: 22 Laboratory Tests 03/07/19 15:10: White Blood Count 0.6*L 03/07/19 15:50: White Blood Count 0.5*L Blood Pressure 122 /83 Mean: 96 03/07/19 15:40: Lactic Acid Level 2.71*H 03/07/19 17:45: Lactic Acid Level 1.81 Laboratory Tests 03/07/19 15:10: Creatinine 1.20, Platelet Count 39*L, Total Bilirubin 0.6 03/07/19 15:50: Platelet Count 39*L Results/Orders Lab Results Laboratory Tests Test 03/07/19 14:50 03/07/19 15:10 03/07/19 15:40 03/07/19 15:50 Range/Units Urine Color DARK YELLOW Urine Clarity SLT CLOUDY Urine pH 6.0 5-9 Urine Specific Edison 1.020 1.016-1.022 Urine Protein 2+ H NEGATIVE Urine Glucose (UA) NEGATIVE NEGATIVE Urine Ketones NEGATIVE NEGATIVE Urine Nitrite NEGATIVE NEGATIVE Urine Bilirubin 1+ H NEGATIVE Urine Urobilinogen 4.0 < = 1.0 MG/DL Urine Leukocyte Esterase NEGATIVE NEGATIVE Urine RBC (Auto) 2+ H NEGATIVE Urine RBC 2-5 H /HPF Urine WBC 0-2 /HPF Urine Squamous Epithelial Cells 5-10 /HPF Urine Crystals NONE /LPF Urine Bacteria NEGATIVE /HPF Urine Casts PRESENT /LPF Urine Granular Casts RARE /LPF Urine Mucus NONE /LPF Urine Culture Indicated NO Urine Test NEGATIVE NEGATIVE White Blood Count 0.6 *L 0.5 *L 4.3-11.0 10^3/uL Red Blood Count 3.41 L 3.26 L 4.35-5.85 10^6/uL Hemoglobin 9.7 L 9.3 L 11.5-16.0 G/DL Hematocrit 29 L 28 L 35-52 % Mean Corpuscular Volume 85 85 80-99 FL Mean Corpuscular Hemoglobin 28 29 25-34 PG Mean Corpuscular Hemoglobin Concent 28 L 34 32-36 G/DL Red Cell Distribution Width 17.1 H 17.2 H 10.0-14.5 % Platelet Count 39 *L 39 *L 130-400 10^3/uL Mean Platelet Volume 10.8 H 11.9 H 7.4-10.4 FL Neutrophils (%) (Auto) 36 L 43 42-75 % Lymphocytes (%) (Auto) 51 H 47 H 12-44 % Monocytes (%) (Auto) 11 10 0-12 % Eosinophils (%) (Auto) 0 0 0-10 % Basophils (%) (Auto) 2 0 0-10 % Neutrophils # (Auto) 0.2 L 0.2 L 1.8-7.8 X 10^3 Lymphocytes # (Auto) 0.3 L 0.2 L 1.0-4.0 X 10^3 Monocytes # (Auto) 0.1 0.1 0.0-1.0 X 10^3 Eosinophils # (Auto) 0.0 0.0 0.0-0.3 10^3/uL Basophils # (Auto) 0.0 0.0 0.0-0.1 10^3/uL Neutrophils % (Manual) 32 % Lymphocytes % (Manual) 48 % Monocytes % (Manual) 2 % Eosinophils % (Manual) 0 % Basophils % (Manual) 0 % Metamyelocytes % 2 % Band Neutrophils 14 % Atypical Lymphocytes 2 % Hypochromasia SLIGHT Schistocytes Sodium Level 128 L 135-145 MMOL/L Potassium Level 3.2 L 3.6-5.0 MMOL/L Chloride Level 91 L 98-107 MMOL/L Carbon Dioxide Level 20 L 21-32 MMOL/L Anion Gap 17 H 5-14 MMOL/L Blood Urea Nitrogen 16 7-18 MG/DL Creatinine 1.20 0.60-1.30 MG/DL Estimat Glomerular Filtration Rate 48 BUN/Creatinine Ratio 13 Glucose Level 139 H 70-105 MG/DL Calcium Level 7.5 L 8.5-10.1 MG/DL Corrected Calcium 8.7 8.5-10.1 MG/DL Total Bilirubin 0.6 0.1-1.0 MG/DL Aspartate Amino Transf (AST/SGOT) 75 H 5-34 U/L Alanine Aminotransferase (ALT/SGPT) 15 0-55 U/L Alkaline Phosphatase 66 40-136 U/L Total Protein 7.0 6.4-8.2 GM/DL Albumin 2.5 L 3.2-4.5 GM/DL Lipase 37 8-78 U/L Lactic Acid Level 2.71 *H 0.50-2.00 MMOL/L Test 03/07/19 17:45 Range/Units Lactic Acid Level 1.81 0.50-2.00 MMOL/L My Orders Orders - CATHRYN CLEARY MD Ua Culture If Indicated (03/07/19 14:53) Hcg,Qualitative Urine (03/07/19 14:53) Comprehensive Metabolic Panel (03/07/19 14:57) Lipase (03/07/19 14:57) Ed Iv/Invasive Line Start (03/07/19 14:57) Cbc With Automated Diff (03/07/19 14:57) Ns Iv 1000 Ml (Sodium Chloride 0.9%) (03/07/19 14:57) Ondansetron Injection (Zofran Injectio (03/07/19 14:57) Ct Jesenia Chest/Noang Abd-Pelv W (03/07/19 14:57) Iohexol Injection (Omnipaque 350 Mg/Ml 1 (03/07/19 15:45) Received Contrast (Hold Metformin- Contr (03/07/19 15:45) Sodium Chloride Flush (Catheter Flush Sy (03/07/19 15:45) Ns (Ivpb) (Sodium Chloride 0.9% Ivpb Bag (03/07/19 15:45) Manual Differential (03/07/19 15:10) Blood Culture (03/07/19 15:45) Lactic Acid Analyzer (03/07/19 15:45) Cbc With Automated Diff (03/07/19 15:45) Lorazepam Injection (Ativan Injection) (03/07/19 15:51) Monitor-Rhythm Ecg Trace Only (03/07/19 16:52) Ekg Tracing (03/07/19 16:52) Levofloxacin 750 Mg/150 Ml Iv (Levaquin (03/07/19 16:52) Ns Iv 1000 Ml (Sodium Chloride 0.9%) (03/07/19 17:45) Ns Iv 1000 Ml (Sodium Chloride 0.9%) (03/07/19 19:30) Ondansetron Injection (Zofran Injectio (03/07/19 20:44) Medications Given in ED Current Medications Medications Dose Ordered Sig/Bernarda Route Start Time Stop Time Status Last Admin Dose Admin Ondansetron HCl 4 mg ONCE ONCE IVP 03/07/19 21:00 03/07/19 21:01 DC 03/07/19 20:49 4 MG Vital Signs/I&O 03/07/19 21:04 Pulse 110 Resp 20 B/P (MAP) 96/58 Pulse Ox 95 O2 Delivery Room Air 03/08/19 00:00 Intake Total 2650 ml Balance 2650 ml Capillary Refill : Less Than 3 Seconds Blood Pressure Mean: 96 POS Progress Note #1: Progress Note CT angio chest to evaluate for PE and CT abdomen/pelvis to evaluate for her recent surgery and see if there is any sign of abscess or fluid collection to account for her distention and complaints of pain and weakness. Check basic labs and give Zofran for nausea, IVF for hydration and tachycardia. Progress Note #2: Progress Note Labs show pancytopenia and drop of 3 grams in her HGB since surgery 1 week ago. Her WBC is down to 0.6 from 6.8 and Platelets down from 239 to 39. Chemistry shows sodium down from 139 to 128. Renal and Hepatic function are stable. Lactic acid elevated at 2.7. Give IVF and for her lactic acid I do not have a source for infection but will cover her with antibiotics of Levaquin [address] scan pending but pt required a dose of ativan to go to CT as she reports being too claustraphobic to go otherwise. Progress Note #3: Progress Note CT scan came back and shows she has a small right pleural effusion. No definite PE. She has retroperitoneal Lymphadenopathy with increased stranding since before the surgery. D/w Dr. Ortiz for [facility] and she felt the patient needed more services, especially Rheumatology and someone that would know more about her Lupus and potential interactions of her Methotrexate that might have caused her sudden drop in blood counts across several blood cell lines, and the hyponatremia, and elevated lactic acid. Since her Lupus followed at [facility] will contact that facility about transfer. Progress Note #4: Progress Note Discussed the case with the [facility] transfer center and Dr. Mcneil for the hospitalist service. He accepted the patient for transfer but did have want to make sure that her blood pressure remained above 100 systolic with fluids. I felt that some of her blood pressure was due to also getting a milligram of Ativan that she requested for anxiety and claustrophobia before being able to tolerate a CT scan. Prior to that her systolic blood pressure was in the 110s to 120s. ECG Initial ECG Impression Date: Mar 07, 2019 Initial ECG Impression Time: 17:07 Initial ECG Rate: 110 Initial ECG Rhythm: S.Tach Initial ECG Comparisson: No Previous ECG Available Comment Sinus Tachycardia with heart rate 110 bpm. SD interval of 155. Low voltage. QT interval of 302 ms and QTc of [address] elevation but has global T wav e flattening. No prior tracing available for comparison. Diagnostic Imaging Diagonstic Imaging: CT Plain Films/CT/US/NM/MRI: chest, abdomen, pelvis Comments NAME: IAN WORTHINGTON [employer] REC#: [id number] PT STATUS: REG ER : 1970 PHYSICIAN: CATHRYN CLEARY MD ADMIT DATE: 03/07/19/ER FS Draft POSDate of Exam:03/07/19 CT JESENIA CHEST/NOANG ABD-PELV W EXAM: CT chest, abdomen and pelvis with intravenous contrast. DATE: March 07, 2019. INDICATION: 49-year-old female, nausea and vomiting for one week. History of appendectomy approximately one week ago. COMPARISON: CT abdomen and pelvis February 27, 2019. TECHNIQUE: Axial CT images at the level of the chest, abdomen and pelvis were obtained following the intravenous administration of contrast. Coronal and sagittal reformats were obtained and provided. All CT scans use one or more of the following dose optimizing techniques: automated exposure control, MA and/or KvP adjustment based on a patient size and exam type, or iterative reconstruction. FINDINGS: There are mild linear opacities in the right middle lobe and right lower lobe likely relating to atelectasis. There is mild atelectasis in the left upper and left lower lobes. There is fairly prominent respiratory motion artifact. There is a trace right pleural effusion. There is no pneumothorax. There is no identified pulmonary nodule or lung mass. There is no additional focal airspace consolidation. There is significantly limited evaluation for pulmonary embolus given the timing of the contrast bolus. There is no obvious large central pulmonary embolus. The main pulmonary artery diameter measures beyond upper limits of normal at 3.5 cm in diameter suggesting pulmonary artery hypertension. The heart is not enlarged. There is no large pericardial effusion. There is no identified abnormally enlarged mediastinal, hilar, or axillary lymph node which meets CT size criteria for adenopathy. The liver is normal in size and contour. There is no identified liver lesion. The main, right, and left portal veins are patent. The gallbladder is unremarkable. There is no biliary ductal dilation. The main pancreatic duct is not abnormally dilated. Unremarkable appearance of the pancreatic parenchyma. The spleen is normal in size. The adrenal glands are unremarkable. There are multiple nonobstructing renal stones bilaterally. There is no hydronephrosis. There is no identified ureteral stone. The urinary bladder is underdistended and not well evaluated. There is a cystic focus in the left adnexa on axial image 356 which measures up to 3.0 cm in size which may potentially reflect a left ovarian cyst although cannot be definitively classified on CT. There are sutures at the level of the cecum which would be compatible with provided history of appendectomy. There is a trace amount of ascites. There is no identified focal well-demarcated drainable fluid collection. There is very prominent abnormal retroperitoneal inflammatory stranding with abnormally enlarged retroperitoneal lymph nodes. One example left retroperitoneal lymph node on axial image 312 measures 16 mm in short axis. These findings are also present on the prior exam. The retroperitoneal lymph nodes are also previously present. There are bilateral abnormally enlarged common iliac chain, and external iliac chain lymph nodes. There are also prominent bilateral inguinal lymph nodes. There is no identified free intraperitoneal air. There does appear to be wall thickening and inflammatory stranding at the level of the second/third portion of duodenum. There is inflammatory stranding in the anterior abdominal wall subcutaneous fat. There are degenerative changes of the spine. There is no identified acute bony abnormality. IMPRESSION: 1. Very prominent abnormal inflammatory stranding in the retroperitoneum with multilevel abnormally enlarged retroperitoneal, bilateral common iliac chain, bilateral external iliac chain, and bilateral inguinal lymph nodes. The lymph nodes are uncertain in exact etiology. Metastatic eric disease and lymphoma are in the differential diagnosis as well as reactive lymph nodes. 2. Wall thickening and inflammatory stranding at the level of the second/third portion of the duodenum may relate to a nonspecific duodenitis. This could potentially partially account for retroperitoneal stranding. 3. Multiple nonobstructing renal stones bilaterally. 4. Trace volume ascites. 5. Respiratory motion artifact. Trace right pleural effusion. No convincing acute cardiopulmonary abnormality. 6. Findings suggesting pulmonary artery hypertension. Dictated on workstation # [id number] Dict: 03/07/198 Trans: 03/07/19 1746 [id number] Interpreted by: KERWIN BAZZI MD Electronically signed by: Critical Care Note Critical Care Total Time (minutes) 60 minutes Progress 60 minutes of critical care time was spent with the patient. This time was excluding separately billable procedures. Time was spent obtaining history from the patient and medical records and family, examining the patient, ordering labs and reviewing results, ordering interventions and reviewing response, ordering imaging and reviewing results, discussion with consultants, documentation of the chart. Departure Impression Primary Impression: Pancytopenia Additional Impressions: Hyponatremia Elevated lactic acid level Sepsis Qualified Codes: A41.9 - Sepsis, unspecified organism Retroperitoneal lymphadenopathy Disposition: 02 XFER SHT-TRM HOSP Condition: Stable Transfer Transfer Reason: Exceeds level of care Time Spoke to Accepting Phy: 19:09 Transfer Progress Notes D/w Dr. Mcneil from [facility] and he accepted pt for transfer. He was concerned that if her blood pressure does not stay above 100 systolic that she would need to go to a Critical care bed and need an Intensive care attending instead of the Hospitalist service. At this point though she has been maintaining her pressure. Will continue her fluids and monitor her pressures. Transfer Facility: [facility] Method of Transfer: EMS Departure-Patient Inst. Referrals: CIPRIANO SWIFT MD (PCP/Family) Primary Care Physician CATHRYN CLEARY MD Mar 07, 2019 15:51 POS
[2019-03-07 16:11] LABS: ATYPICAL LYMPHOCYTES 2 %; BAND NEUTROPHILS 14 %; BASOPHILS % (MANUAL) 0 %; EOSINOPHILS % (MANUAL) 0 %; HYPOCHROMASIA SLIGHT; LYMPHOCYTES % (MANUAL) 48 %; METAMYELOCYTES % 2 %; MONOCYTES % (MANUAL) 2 %; NEUTROPHILS % (MANUAL) 32 %
[2019-03-07 16:20] LABS: HEMATOCRIT 28 % (35-52); HEMOGLOBIN 9.3 G/DL (11.5-16.0); MEAN CORPUSCULAR HEMOGLOBIN 29 PG (25-34); MEAN CORPUSCULAR HGB CONC 34 G/DL (32-36); MEAN CORPUSCULAR VOLUME 85 FL (80-99); RED CELL DISTRIBUTION WIDTH 17.2 % (10.0-14.5); WHITE BLOOD COUNT 0.5 10^3/uL (4.3-11.0)
[2019-03-07 16:21] LABS: BASOPHILS % (AUTO) 0 % (0-10); EOSINOPHILS % (AUTO) 0 % (0-10); LYMPHOCYTES # (AUTO) 0.2 X 10^3 (1.0-4.0); LYMPHOCYTES % (AUTO) 47 % (12-44); MEAN PLATELET VOLUME 11.9 FL (7.4-10.4); MONOCYTES # (AUTO) 0.1 X 10^3 (0.0-1.0); MONOCYTES % (AUTO) 10 % (0-12); NEUTROPHILS # (AUTO) 0.2 X 10^3 (1.8-7.8); NEUTROPHILS % (AUTO) 43 % (42-75); PLATELET COUNT 39 10^3/uL (130-400)
[2019-03-07] MEDS ORDERED: LEVOFLOXACIN 750 MG/150 ML IV 150 ML IV STA (16:52)
[2019-03-07] MEDS ORDERED: NS IV 1000 ML 1,000 ML IV SCH ×2 (17:45→19:30)
--- NOTE | 2019-03-07 17:47 | Diagnostic Imaging Report ---
EXAM: CT chest, abdomen and pelvis with intravenous contrast. DATE: March 07, 2019. INDICATION: 49-year-old female, nausea and vomiting for one week. History of appendectomy approximately one week ago. COMPARISON: CT abdomen and pelvis February 27, 2019. TECHNIQUE: Axial CT images at the level of the chest, abdomen and pelvis were obtained following the intravenous administration of contrast. Coronal and sagittal reformats were obtained and provided. All CT scans use one or more of the following dose optimizing techniques: automated exposure control, MA and/or KvP adjustment based on a patient size and exam type, or iterative reconstruction. FINDINGS: There are mild linear opacities in the right middle lobe and right lower lobe likely relating to atelectasis. There is mild atelectasis in the left upper and left lower lobes. There is fairly prominent respiratory motion artifact. There is a trace right pleural effusion. There is no pneumothorax. There is no identified pulmonary nodule or lung mass. There is no additional focal airspace consolidation. There is significantly limited evaluation for pulmonary embolus given the timing of the contrast bolus. There is no obvious large central pulmonary embolus. The main pulmonary artery diameter measures beyond upper limits of normal at 3.5 cm in diameter suggesting pulmonary artery hypertension. The heart is not enlarged. There is no large pericardial effusion. There is no identified abnormally enlarged mediastinal, hilar, or axillary lymph node which meets CT size criteria for adenopathy. The liver is normal in size and contour. There is no identified liver lesion. The main, right, and left portal veins are patent. The gallbladder is unremarkable. There is no biliary ductal dilation. The main pancreatic duct is not abnormally dilated. Unremarkable appearance of the pancreatic parenchyma. The spleen is normal in size. The adrenal glands are unremarkable. There are multiple nonobstructing renal stones bilaterally. There is no hydronephrosis. There is no identified ureteral stone. The urinary bladder is underdistended and not well evaluated. There is a cystic focus in the left adnexa on axial image 356 which measures up to 3.0 cm in size which may potentially reflect a left ovarian cyst although cannot be definitively classified on CT. There are sutures at the level of the cecum which would be compatible with provided history of appendectomy. There is a trace amount of ascites. There is no identified focal well-demarcated drainable fluid collection. There is very prominent abnormal retroperitoneal inflammatory stranding with abnormally enlarged retroperitoneal lymph nodes. One example left retroperitoneal lymph node on axial image 312 measures 16 mm in short axis. These findings are also present on the prior exam. The retroperitoneal lymph nodes are also previously present. There are bilateral abnormally enlarged common iliac chain, and external iliac chain lymph nodes. There are also prominent bilateral inguinal lymph nodes. There is no identified free intraperitoneal air. There does appear to be wall thickening and inflammatory stranding at the level of the second/third portion of duodenum. There is inflammatory stranding in the anterior abdominal wall subcutaneous fat. There are degenerative changes of the spine. There is no identified acute bony abnormality. IMPRESSION: 1. Very prominent abnormal inflammatory stranding in the retroperitoneum with multilevel abnormally enlarged retroperitoneal, bilateral common iliac chain, bilateral external iliac chain, and bilateral inguinal lymph nodes. The lymph nodes are uncertain in exact etiology. Metastatic eric disease and lymphoma are in the differential diagnosis as well as reactive lymph nodes. 2. Wall thickening and inflammatory stranding at the level of the second/third portion of the duodenum may relate to a nonspecific duodenitis. This could potentially partially account for retroperitoneal stranding. 3. Multiple nonobstructing renal stones bilaterally. 4. Trace volume ascites. 5. Respiratory motion artifact. Trace right pleural effusion. No convincing acute cardiopulmonary abnormality. 6. Findings suggesting pulmonary artery hypertension. Dictated by: Dictated on workstation # [id number]
[2019-03-07] MEDS ORDERED: ONDANSETRON 4 MG/2 ML (SDV) Z0FRAN ONE (20:44)
[2019-03-07] MEDS ORDERED: ONDANSETRON 4 MG/2 ML (SDV) Z0FRAN IVP ONE (21:00)
[2019-03-07 21:04] VITALS: BP 96/58
== END 2019-03-07 21:04 | disposition short-term general hospital (02) ==
LOC: EDUNIT# 14:31 → ER FS 14:33
DX: A41.9 Sepsis, unspecified organism (principal); D61.818 Other pancytopenia; E87.1 Hypo-osmolality and hyponatremia; R74.0 Nonspecific elevation of levels of transaminase and lactic acid dehydrogenase [LDH]; R59.0 Localized enlarged lymph nodes; K21.9 Gastro-esophageal reflux disease without esophagitis; F41.9 Anxiety disorder, unspecified; Z90.49 Acquired absence of other specified parts of digestive tract; Z90.89 Acquired absence of other organs; Z87.442 Personal history of urinary calculi; Z87.39 Personal history of other diseases of the musculoskeletal system and connective tissue
CPT/HCPCS: 36415; 71275; 74177; 80053; 81000; 83605; 83690; 84703; 85007; 85025; 85027; 87040; 87077; 93005; 93041; 96361; 96365; 96366; 96375; 96376

== ENCOUNTER → 2019-03-26 | Outpatient (CLI) | payer BC ==
[2019-03-27 15:45] LABS: MEAN PLATELET VOLUME 8.9 FL (7.4-10.4); RED CELL DISTRIBUTION WIDTH 22.6 % (10.0-14.5); WHITE BLOOD COUNT 6.8 10^3/uL (4.3-11.0)
[2019-03-27 15:53] LABS: CARBON DIOXIDE 28 MMOL/L (21-32); CHLORIDE 105 MMOL/L (98-107); POTASSIUM 4.4 MMOL/L (3.6-5.0); SODIUM 142 MMOL/L (135-145)
[2019-03-27 15:54] LABS: BUN/CREATININE RATIO 19; CALCIUM 8.3 MG/DL (8.5-10.1); CREATININE SERUM 0.73 MG/DL (0.60-1.30); GFR ESTIMATED > 60; GLUCOSE 126 MG/DL (70-105)
== END ==
LOC: LAB FS 09:19
DX: I82.621 Acute embolism and thrombosis of deep veins of right upper extremity (principal); D69.6 Thrombocytopenia, unspecified; D61.818 Other pancytopenia; R80.9 Proteinuria, unspecified; Z91.19 Patient's noncompliance with other medical treatment and regimen
CPT/HCPCS: 36415; 85027

== ENCOUNTER → 2020-01-11 | Outpatient (CLI) | payer BC ==
--- NOTE | 2020-01-11 12:22 | Diagnostic Imaging Report ---
AP standing knee bilaterally at 11:16. Indication: Right knee pain AP standing views of both knees were obtained. There is no fracture, dislocation or acute bony abnormality evident. There is mild narrowing of the medial compartment of each knee joint, particularly the right knee joint. The mild narrowing of the right knee joint does not appear to have progressed significantly since the prior exam of 05/28/2018. The lateral compartment of the knee joint are well maintained. The soft tissues are unremarkable. Impression: 1. There is no evidence for an acute bony abnormality. 2. There is mild narrowing of the medial compartment each knee joint, particularly the right knee joint. Dictated by: Dictated on workstation # [id number]
== END ==
LOC: RAD FS 10:58
PROVIDERS: ATTEND Family Medicine
DX: M25.861 Other specified joint disorders, right knee (principal); M25.862 Other specified joint disorders, left knee
CPT/HCPCS: 73565

== ENCOUNTER → 2020-01-15 | Outpatient (CLI) | payer BC ==
[~2020-01-15] MED LIST changes: +CATHETER FLUSH 10 ML SYR IV PRN; +HOLD METFORMIN - RECEIVED CONTRAST 20 ML VIAL IV SCH; +IOHEXOL 350 MG/ML 100 ML (OMNIPAQUE 350) VIAL IV ONE; +NS 100 ML (IVPB) BAG IV ONE
--- NOTE | 2020-01-15 11:35 | Diagnostic Imaging Report ---
EXAMINATION: CT Chest with intravenous contrast. TECHNIQUE: Multiple contiguous axial images were obtained through the chest after the uneventful administration of intravenous contrast. All CT scans use one or more of the following dose optimizing techniques: automated exposure control, MA and/or KvP adjustment based on a patient size and exam type, or iterative reconstruction. HISTORY: ABN CHEST XRAY COMPARISON: CTA chest 03/07/2019. FINDINGS: Thyroid: The thyroid is nonvisualized. Mediastinum: Heart size is normal with a small pericardial effusion. Mild aneurysmal dilatation of the ascending thoracic aorta measuring up to 4.4 cm. No suspicious mediastinal lymphadenopathy. Lungs and airways: The lungs are clear without consolidation, pleural effusion, or pneumothorax. No suspicious pulmonary nodule. Linear atelectasis within the medial right middle lobe and lingula. Bibasilar dependent atelectasis. The airways are normal. Upper abdomen: The subphrenic structures are normal. Musculoskeletal: Degenerative changes of the spine without suspicious osseous lesion or compression fracture. There are multiple enlarged left axillary lymph nodes measuring up to 2.0 x 1.5 cm on (series 2 image 59). These are increased in size from the prior CT of the chest 03/07/2019. IMPRESSION: 1. No acute abnormality in the chest. 2. Mild dilatation of the ascending thoracic aorta measuring up to 4.4 cm. 3. Multiple enlarged left axillary lymph nodes compared to prior CT from 03/07/2019. Dictated by: Dictated on workstation # [id number]
== END ==
LOC: RAD FS 01-13 09:54
PROVIDERS: ATTEND Family Medicine
DX: I77.810 Thoracic aortic ectasia (principal); R93.89 Abnormal findings on diagnostic imaging of other specified body structures; R59.0 Localized enlarged lymph nodes
CPT/HCPCS: 71260

== ENCOUNTER 2020-05-24 05:55 | Outpatient (RCR) | payer BC ==
[~2020-05-24] VITALS: Ht 162.6 cm; Wt 113.4 kg
[~2020-05-24 05:55] MED LIST changes: -CATHETER FLUSH 10 ML SYR IV PRN; -HOLD METFORMIN - RECEIVED CONTRAST 20 ML VIAL IV SCH; -IOHEXOL 350 MG/ML 100 ML (OMNIPAQUE 350) VIAL IV ONE; -NS 100 ML (IVPB) BAG IV ONE
[2020-05-24] MEDS ORDERED: MECL50CA PO (14:23)
[2020-05-24] MEDS ORDERED: CIME200T86 PO (14:23)
== END 2020-05-26 09:49 | disposition home or self-care (01) ==
LOC: PREOP 05:55
PROVIDERS: ATTEND Surgery
DX: Z01.818 Encounter for other preprocedural examination (principal)

== ENCOUNTER 2020-11-10 15:11 | Emergency (ER) | payer BC ==
[~2020-11-10] VITALS: Ht 162 cm; Wt 117.0 kg
[~2020-11-10 15:11] MED LIST changes: +CIME200T86 PO; -FOLI0.8T PO; +FOLI0.8T4 PO; +MECL50CA PO
[2020-11-10 15:16] VITALS: BP 121/75
[2020-11-10] MEDS ORDERED: RT-ALBUINH IH (15:27)
[2020-11-10] MEDS ORDERED: DEXA6TAB6 PO (15:27)
--- NOTE | 2020-11-10 15:28 | ED Cough/URI ---
General Chief Complaint: Cough/Cold/Flu Symptoms Stated Complaint: COUGH History of Present Illness Date Seen by Provider: Nov 10, 2020 Time Seen by Provider: 15:20 Initial Comments 50-year-old female presents with persistent cough for the past 2 weeks. Diagnosed with Covid at the onset of her cough which is in recovery now without a fever and without shortness of air and overall improving with exception of a persistent and annoying cough. Has been treated with cough Rx (Phenergan with codeine) syrup with no relief. Allergies and Home Medications Allergies Coded Allergies: No Known Drug Allergies (Unverified , 09/27/11) Home Medications Albuterol Sulfate 1 Puff Puff, 2 PUFF IH Q4H 1 PUFF = 90 MCG Prescribed by: YANA MATIAS on 11/10/20 1527 Cimetidine 200 Mg Tablet, 200 MG PO DAILY, (Reported) Citalopram Hydrobromide 20 Mg Tablet, 20 MG PO DAILY, (Reported) Dexamethasone 6 Mg Tablet, 6 MG PO DAILY Prescribed by: YANA MATIAS on 11/10/20 1527 Folic Acid 0.8 Mg Tablet, 0.8 MG PO DAILY, (Reported) Levothyroxine Sodium 200 Mcg Tablet, 200 MCG PO DAILY, (Reported) Meclofenamate Sodium 50 Mg Capsule, 50 MG PO DAILY, (Reported) Patient Home Medication List Home Medication List Reviewed: Yes Review of Systems Review of Systems Constitutional: No fever, No malaise, No weakness Respiratory: cough; No short of breath, No wheezing Cardiovascular: No chest pain, No edema, No palpitations Gastrointestinal: No abdominal pain, No nausea, No vomiting Musculoskeletal: No back pain, No joint pain Skin: No change in color, No rash Psychiatric/Neurological: Denies Headache, Denies Numbness, Denies Paresthesia Past Yyehzyg-Rcytii-Vdytbn Hx Patient Social History Tobacco Use?: Yes Use of E-Cig and/or Vaping dev: No Substance use?: No Alcohol Use?: No Pt feels they are or have been: No Seasonal Allergies Seasonal Allergies: No Past Medical History Surgeries: Yes (C SECSION X3) Adenoidectomy, Appendectomy, Section, Tonsillectomy Respiratory: No Cardiac: No Neurological: No Reproductive Disorders: No Sexually Transmitted Disease: No Genitourinary: No UTI-Chronic Gastrointestinal: No Gastroesophageal Reflux Musculoskeletal: Yes (ARTHRITIS) Arthritis Endocrine: Yes Lupus HEENT: No Cancer: No Psychosocial: Yes Anxiety Integumentary: Yes (LUPUS) Recent Skin Changes Blood Disorders: No Family Medical History Patient reports no known family medical history. Other Conditions/Hx Physical Exam Vital Signs - First Documented 11/10/20 15:16 Temp 35.9 Pulse 90 Resp 20 B/P (MAP) 121/75 (90) Pulse Ox 92 O2 Delivery Room Air Capillary Refill : Height: 5'4.00" Weight: 252lbs. oz. [id number]; 42.89 BMI Method:Stated General Appearance: WD/WN, no apparent distress Eyes: Bilateral Eye Normal Inspection, Bilateral Eye PERRL, Bilateral Eye EOMI HEENT: PERRL/EOMI, normal ENT inspection Neck: non-tender, supple Respiratory: chest non-tender, lungs clear, normal breath sounds, no respiratory distress, no accessory muscle use Cardiovascular: regular rate, rhythm, no edema, no gallop, no JVD Gastrointestinal: non tender, soft Neurologic/Psychiatric: no motor/sensory deficits, alert, normal mood/affect, oriented x 3 Skin: normal color, warm/dry Progress/Results/Core Measures Suspected Sepsis SIRS Temperature: Pulse: Respiratory Rate: Blood Pressure / Mean: Results/Orders Vital Signs/I&O 11/10/20 11/10/20 15:16 15:16 Temp 35.9 Pulse 90 Resp 20 B/P (MAP) 121/75 (90) Pulse Ox 92 O2 Delivery Room Air Room Air Capillary Refill : Departure Impression Primary Impression: Cough Disposition: 01 HOME, SELF-CARE Condition: Stable Departure-Patient Inst. Decision time for Depature: 15:26 Referrals: CIPRIANO MCCABE MD (PCP/Family) Primary Care Physician Patient Instructions: Cough, Adult (DC) Add. Discharge Instructions: follow up with Dr Mccabe in 1 week Take the following vitamins daily: Vitamin C 1000mg twice daily Vitamin D 5000iu daily Zinc 100mg daily melatonin 10mg at bedtime All discharge instructions reviewed with patient and/or family. Voiced understanding. Scripts Dexamethasone (Decadron) 6 Mg Tablet 6 MG PO DAILY, #5 TAB Prov: EVEVENSTYANA YOUSIF DO 11/10/20 Albuterol Sulfate (PROAIR HFA) 1 Puff Puff 2 PUFF IH Q4H for Cough, #1 PUFF 1 Refill 1 PUFF = 90 MCG Prov: YANA MATIAS DO 11/10/20 YANA MATIAS DO Nov 10, 2020 15:28
== END 2020-11-10 15:30 | disposition home or self-care (01) ==
LOC: EDUNIT# 15:11 → ER FS 15:13
DX: R05 Cough (principal); F41.9 Anxiety disorder, unspecified; Z79.899 Other long term (current) drug therapy
CPT/HCPCS: 99282

== ENCOUNTER 2022-01-17 05:33 | Outpatient (CLI) | payer BC ==
[~2022-01-17] VITALS: Ht 162.5 cm; Wt 116.8 kg
[~2022-01-17 05:33] MED LIST changes: +DEXA6TAB6 PO; +RT-ALBUINH IH
[2022-01-17] MEDS ORDERED: ROPI0.5T4 PO (14:17)
[2022-01-17] MEDS ORDERED: POTA99CA PO (14:17)
[2022-01-17] MEDS ORDERED: RT-ALBUINH IH (14:17)
[2022-01-17] MEDS ORDERED: TIOT18CA2 IH (14:17)
[2022-01-17] MEDS ORDERED: LEVO5TAB28 PO (14:17)
[2022-01-17] MEDS ORDERED: LEVO-129 PO (14:17)
[2022-01-17] MEDS ORDERED: LEVO200T62 PO (14:17)
[2022-01-17] MEDS ORDERED: FAMO-274 PO (14:17)
== END 2022-01-17 14:23 | disposition home or self-care (01) ==
LOC: PREOP 05:33
PROVIDERS: ATTEND Surgery
DX: Z01.818 Encounter for other preprocedural examination (principal)

== ENCOUNTER 2022-01-24 07:00 | Day surgery (SDC) | payer BC ==
[~2022-01-24] VITALS: Ht 162.5 cm; Wt 116.8 kg
[2022-01-24] VITALS (12 sets, daily range): BP systolic 111–147; BP diastolic 73–115
[~2022-01-24 07:00] MED LIST changes: +FAMO-274 PO; +LEVO-129 PO; +LEVO200T62 PO; +LEVO5TAB28 PO; +POTA99CA PO; +ROPI0.5T4 PO; +TIOT18CA2 IH
[2022-01-24] MEDS ORDERED: CEFAZOLIN IV ONE ×2 (07:15)
[2022-01-24] MEDS ORDERED: LACTATED RINGERS 1,000 ML IV PRN (07:15)
[2022-01-24] MEDS ORDERED: NS IV ONE ×2 (07:15)
[2022-01-24] MEDS ORDERED: ceFAZolin INJECTION 1,000 MG VIAL IV ONE (07:15)
[2022-01-24] MEDS ORDERED: MIDAZOLAM 2 MG/2 ML (VERSED) VIAL ONE ×2 (07:40→07:53)
[2022-01-24] MEDS ORDERED: LIDOCAINE/EPI 2% 1:200,00 (XYLOCAINE) 10 ML VIAL ONE (07:42)
[2022-01-24] MEDS ORDERED: MIDAZOLAM 2 MG/2 ML (VERSED) VIAL IV ONE (07:45)
[2022-01-24] MEDS ORDERED: ONDANSETRON 4 MG/2 ML (SDV) Z0FRAN ONE (07:53)
[2022-01-24] MEDS ORDERED: GLYCOPYRROLATE 0.2 MG/ML (ROBINUL) 2 ML VIAL ONE (07:53)
[2022-01-24] MEDS ORDERED: LIDOCAINE PF 2% 5 ML (XYLOCAINE) VIAL ONE (07:53)
[2022-01-24] MEDS ORDERED: ROCURONIUM 10 MG/ML 5 ML SYRINGE IV ONE (07:53)
[2022-01-24] MEDS ORDERED: proPOfol 200 MG/20 ML (DIPRIVAN) VIAL IV ONE (07:53)
[2022-01-24] MEDS ORDERED: fentaNYL INJ 100 MCG/2 ML AMP ONE (07:53)
[2022-01-24] MEDS ORDERED: NEOSTIGMINE 3 MG/3 ML VIAL ONE (07:53)
[2022-01-24] MEDS ORDERED: morphine INJ 10 MG/ML 1ML (SYR OR VIAL) IVP ONE (08:30)
[2022-01-24] MEDS ORDERED: HYDROmorphone 2 MG/ML VIAL (DILAUDID) IV ONE (08:30)
--- NOTE | 2022-01-24 08:37 | Progress Note-Pre Operative ---
Pre-Operative Progress Note Date of Available H&P: Jan 11, 2022 Date H&P Reviewed: Jan 24, 2022 Time H&P Reviewed: 08:31 History & Physical: H&P Reviewed, Patient Examed, No changes noted Pre-Operative Diagnosis: Incarcerated Ventral/Inicisional hernia, Left axillary mass (side marked) CORNELIA OGLESBY DO Jan 24, 2022 08:37
[2022-01-24] MEDS ORDERED: SEVOFLURANE (ULTANE) 15 ML INHAL SOLN ONE (10:30)
--- NOTE | 2022-01-24 10:41 | Progress Note-Post Operative ---
Post-Operative Progess Note Surgeon (s)/[employer] Team Member (s) Surgeon CORNELIA OGLESBY DO [employer] Team Member: [place] Pre-Operative Diagnosis Incarcerated Ventral/Inicisional hernia, Left axillary mass (side marked) Post-Operative Diagnosis Same plus Umbilical hernia Axillary mass - pending path Procedure & Operative Findings Date of Procedure 01/24/22 Procedure Performed/Findings 1) Laparoscopic Incisional/ventral herniarraphy with mesh placement - Robotic 2) Laparoscopic umbilical herniarraphy 3) Excision of left axillary lymph nodes COMPLICATIONS: None. INDICATIONS: The patient is a 51, female with an incarcerated ventral incisional hernia, which has continued to increase in size and cause discomfort. The patient was e xplained the risk and benefits of the procedure and wished to proceed with the procedure. Consent was signed on the chart. FINDINGS: Incarcerated incisional/ventral hernia and umbilical hernia. DESCRIPTION OF PROCEDURE: The patient was taken into the operating suite, prepped and draped in sterile fashion. Surgical pause was performed. Local anesthetic was infiltrated in left upper quadrant. A #11 blade scalpel was used to make a small skin incision. Cautery was used to dissect down to the fascia, which was then scored and divided the muscle, went through the post- erior sheath and a balloon trocar was inserted into the abdomen. The abdomen was then insufflated. Found an incarcerated ventral/incisional hernia with omentum stuck in it and a small umbilical hernia right next to it; pictures taken. An 8 mm trocar was placed in the left lower quadrant and another 8 mm trocar was placed in between the two already placed. The robot was then docked and the defect was then closed using an Non-absorbable 0 V-lock. Ran it from superior all the way to umbilical hernia (to close this as well) and then ran it back up to oversew the fascial defect. Next placed a 4 x 6 inch Echo Ventralight mesh inserted in the abdomen grabbed through a stab incision with the Henrietta Hsieh. The balloon was inflated on the mesh. Circumferential tacks were placed with a SecureStrap Tacker. The balloon was then removed and inner crown was created as well. The mesh was tacked with pressure being decreased. The 12 mm fascial defect was then closed using 0 Vicryl figure of eight stitch. The abdomen was then desufflated,the trocars were removed. The skin was then closed using 4-0 Monocryl in simple interrupted subcuticular fashion. The abdomen was washed and dried and Skin Affix was placed over the incisions. The patient tolerated procedure well without any com- plications. Next took the drapes down and steriley prepped the left axilla and toweled the area off. Local lidocaine was used to infiltrate in the left axilla (side had been marked). A #15 blade was used to make an incision and then dissected down with bovie cautery into the axilla. Encountered what looked like multiple lymph nodes. Took out at least 2-3 by grabbing with teresa and then dissecting with bovie electrocautery. Bleeding was controlled with the bovie cautery, used [employer] Bie[employer]le retractors and Richardsons to expose the area. Then copiously irrigated with normal saline and finally closed the skin with 4-0 undyed monocryl. She was taken to recovery room in stable condition. Dr. Arias assisted on this case helping to make incisions, close incisions, identify anatomy, pass suture and mesh, as well as hold anatomy out of the way Anesthesia Type GET Estimated Blood Loss Estimated blood loss (mL): scant Specimens/Packing Specimens Removed left axillary mass CORNELIA OGLESBY DO Jan 24, 2022 10:40
[2022-01-24] MEDS: ONDANSETRON 4 MG/2 ML (SDV) Z0FRAN IVP PRN ×2 (11:03→11:20)
[2022-01-24] MEDS ORDERED: morphine INJ 10 MG/ML 1ML (SYR OR VIAL) ONE (11:12)
[2022-01-24] MEDS ORDERED: ACHYD1T PO ×2 (11:14→13:16)
--- NOTE | 2022-01-24 11:19 | Discharge Inst-Surgical ---
Discharge Inst-Surgical Depart Medication/Instructions New, Converted or Re-Newed RX: Transmitted to Pharmacy Patient Instructions Follow up Appt: Make appointment for 1 week. [phone] Instructions: No lifting greater than 20 pounds. No strenuous activity. May shower in 24 hours, no tub bath or soaking. Use incentive spirometer at home as directed. No Smoking Skin/Wound Care: May remove bandages in am. You need to leave the Dermabond on incision it will fall off on it's own. Symptoms to Report: Appetite Changes, Extremity Discoloration, Numbness/Tingling, Swelling Increased, Bleeding Excessive, Eyesight Changes, Pain Increased, Urine Color Change, Constipation(Persistent), Fever over 101 degree F, Pain/Pressure in chest, Urinating Difficulty, Cough Up/Vomit Blood, Heart Beat Irreg/Pounding, Pain/Pressure in jaw, Cramps in feet or legs, Lightheadedness, Pain/Pressure in shoulder, Diarrhea(Persistent), Memory Changes Suddenly, Questions/Concerns, Weight gain consecutive days, Dizziness/Fainting, Nausea/Vomiting, Shortness of Breath, Weight gain over 2 pounds If questions or concerns contact your physician Or seek help at emergency department. Activity Activity as Tolerated: Yes Activity Instructions: Avoid Stress to Incision Driving Instructions: No Driving/Refer to Dr. Marie Discharge Diet: No Restrictions Diet After 24 Hours: Clear Liquid if Nauseous If Any Problems/Questions/Issu: Contact Your Physician, Go to Emergency Room Skin/Wound Care Infection Signs and Symptoms: Increased Redness, Foul Odor of Wound, Increased Drainage, Skin Itchy or Has a Rash, Increased Swelling, Temperature Above 101 F Bathing Instructions: Shower Stitches/[place]/Dermabond Dis: Dermabond Ice Pack: Ice On and Off Site CORNELIA OGLESBY DO Jan 24, 2022 11:19
--- NOTE | 2022-01-24 11:32 | Anesthesia-General Post-Op ---
General Patient Condition Mental Status/LOC: Same as Preop Cardiovascular: Satisfactory Nausea/Vomiting: Absent Respiratory: Satisfactory Pain: Controlled Complications: Absent Post Op Complications Complications None Follow Up Care/Instructions Patient Instructions None needed. Anesthesia/Patient Condition Patient Condition Patient is doing well in PACU with no complaints, stable vital signs, no apparent adverse anesthesia problems. No complications reported per nursing. TO JOHNSON DO Jan 24, 2022 11:32
== END 2022-01-24 13:00 ==
LOC: SDC 07:00
PROVIDERS: ATTEND Surgery
DX: K43.0 Incisional hernia with obstruction, without gangrene (principal); K42.9 Umbilical hernia without obstruction or gangrene; R59.0 Localized enlarged lymph nodes; Z87.891 Personal history of nicotine dependence; E66.01 Morbid (severe) obesity due to excess calories; Z68.41 Body mass index [BMI] 40.0-44.9, adult
CPT/HCPCS: 38525; 49652; 49655; 84703; 87081; C1781

== ENCOUNTER 2022-04-11 16:21 | Inpatient (IN) | payer BC ==
[~2022-04-11] VITALS: Ht 162.6 cm; Wt 113.0 kg
[~2022-04-11 16:21] MED LIST changes: +ACHYD1T PO; +ALBU8.5H6 IH; -RT-ALBUINH IH
[2022-04-11] MEDS ORDERED: ACETAMINOPHEN 500 MG TAB (TYLENOL) PO PRN (16:30)
[2022-04-11] MEDS ORDERED: NS IV 1000 ML 1,000 ML IV SCH ×2 (16:30→16:45)
[2022-04-11] MEDS ORDERED: CEFEPIME INJECTION 1,000 MG in NS (IVPB) 50 ML IV ONE (16:30)
--- NOTE | 2022-04-11 16:34 | ED General ---
General Chief Complaint: Respiratory Problems Stated Complaint: SOB Source of Information: Patient, EMS Exam Limitations: No Limitations History of Present Illness Date Seen by Provider: Apr 11, 2022 Time Seen by Provider: 16:24 Initial Comments 52-year-old female with past medical history of lupus on methotrexate, ?COPD, and prior DVTs coming in via EMS from [facility] due to shortness of breath. She was in the high 80s on room air for oxygen saturation. They placed her on 2 L bringing her to the low 90s. She does not wear oxygen at home. She states she developed a fever, cough, shortness of breath since last night. Denies any vomiting, diarrhea, abdominal pain, chest pain, rash, other concerns. EMS started an IV, placed on 2 L oxygen, and gave her a DuoNeb treatment with some improvement in her symptoms. Allergies and Home Medications Allergies Coded Allergies: methotrexate (Verified Allergy, Unknown, 04/11/22) Patient Home Medication List Home Medication List Reviewed: Yes Albuterol Sulfate (Ventolin Hfa) 1 Puff Puff, 2 PUFF IH Q4H Prescribed by: YANA MATIAS on 11/10/20 1527 Albuterol Sulfate (Ventolin Hfa) 1 Puff Puff, 2 PUFF IH UD, (Reported) Entered as Reported by: KELLY TODD on 01/17/22 1417 Citalopram Hydrobromide (Citalopram HBr) 20 Mg Tablet, 20 MG PO DAILY, (Reported) Entered as Reported by: BARRY SUTTON on 02/27/19 1023 Famotidine (Zantac-360 (Famotidine)) Unknown Strength Tablet, Unknown Dose PO HS, (Reported) Entered as Reported by: KELLY TODD on 01/17/22 1417 Hydrocodone Bit/Acetaminophen (HYDROcodone/APAP 10/325 TABLET) 1 Ea Tab, 1 TAB PO Q6H Prescribed by: MARIE WHALEN on 01/24/22 1215 Hydrocodone Bit/Acetaminophen (HYDROcodone/APAP 10/325 TABLET) 1 Ea Tab, 1 TAB PO Q6H Prescribed by: CORNELIA OGLESBY on 01/24/22 1317 Levocetirizine Dihydrochloride (Xyzal) 5 Mg Tablet, 5 MG PO HS, (Reported) Entered as Reported by: KELLY TODD on 01/17/221416 Levothyroxine Sodium (Euthyrox) 200 Mcg Tablet, 200 MCG PO DAILY, (Reported) Entered as Reported by: KELLY TODD on 01/17/221416 Levothyroxine Sodium (Euthyrox) 50 Mcg Tablet, 50 MCG PO DAILY, (Reported) Entered as Reported by: KELLY TODD on 01/17/221416 Potassium Citrate (Potassium) Unknown Strength Capsule, Unknown Dose PO, (Reported) Entered as Reported by: KELLY TODD on 01/17/221416 Ropinirole HCl (Ropinirole HCl) 0.5 Mg Tablet, 0.5 MG PO UD, (Reported) Entered as Reported by: KELLY TODD on 01/17/221416 Tiotropium [place] (Spiriva) 18 Mcg Aerp, 1 INH IH PRN, (Reported) Entered as Reported by: KELLY TODD on 01/17/221416 Review of Systems Review of Systems Constitutional: fever EENTM: nose congestion; No blurred vision Respiratory: cough, short of breath Cardiovascular: no symptoms reported Gastrointestinal: no symptoms reported Genitourinary: no symptoms reported Musculoskeletal: no symptoms reported Skin: no symptoms reported Psychiatric/Neurological: No Symptoms Reported Hematologic/Lymphatic: See HPI Immunological/Allergic: no symptoms reported All Other Systems Reviewed Negative Unless Noted: Yes Past Ffrhddo-Kbvsbo-Qehlaq Hx Patient Social History Tobacco Use?: No Smoking Status: Former Smoker Substance use?: No Seasonal Allergies Seasonal Allergies: No Past Medical History Surgeries: Yes (C SECTION X3) Adenoidectomy, Appendectomy, Section, Tonsillectomy Respiratory: Yes (PRE COPD - ADVAIR NEEDED) Cardiac: No Neurological: No Reproductive Disorders: No Sexually Transmitted Disease: No Genitourinary: Yes UTI-Chronic Gastrointestinal: Yes (VENTRAL) Gastroesophageal Reflux Musculoskeletal: Yes (ARTHRITIS) Arthritis Endocrine: Yes Hypothyroidsim, Lupus HEENT: No Cancer: No Psychosocial: Yes Anxiety Integumentary: Yes (LUPUS(HIVES/RASHES)) Recent Skin Changes Blood Disorders: No Family Medical History Patient reports no known family medical history. Other Conditions/Hx Physical Exam-Suspected Sepsis Physical Exam Vital Signs Vital Signs - First Documented Capillary Refill : Height, Weight, BMI Height: 5'4.00" Weight: 252lbs. oz. 114.294051kr; 44.23 BMI Method:Stated General Appearance: WD/WN, Mild Distress Eyes: Bilateral Eye Normal Inspection HEENT: PERRL/EOMI, Normal ENT Inspection, Pharynx Normal Neck: Full Range of Motion, Normal Inspection, Non Tender, Supple Respiratory: Chest Non Tender, Lungs Clear, Normal Breath Sounds, No Accessory Muscle Use, No Respiratory Distress Cardiovascular: No Edema, Normal Peripheral Pulses, Tachycardia Gastrointestinal: Normal Bowel Sounds, Non Tender, Soft; No Distended, No Guarding Back: Normal Inspection, No CVA Tenderness Extremity: Normal Capillary Refill, Normal Inspection, Normal Range of Motion, Non Tender, No Calf Tenderness, No Pedal Edema Neurologic/Psychiatric: Alert, No Motor/Sensory Deficits, Normal Mood/Affect Skin: normal color, warm/dry Lymphatic: No Adenopathy Focused Exam Sepsis Stage: Sepsis Possible Source: Pulmonary Time of Focused Exam: 18:00 Respiratory: Chest Non Tender, Lungs Clear, Normal Breath Sounds, Other (Increased respiratory rate) Cardiovascular: No Edema, Normal Peripheral Pulses, Tachycardia Capillary Refill: Less Than 3 Seconds Peripheral Pulses: 2+ Radial Pulses (R), 2+ Radial Pulses (L) Skin: normal color, warm/dry Within 3hrs of presentation: Admin 30ml/kg IBW due to BMI>30, Admin ABX, Focus exam Progress/Results/Core Measures Suspected Sepsis SIRS Temperature: Pulse: Respiratory Rate: Laboratory Tests 04/11/22 16:32: White Blood Count 7.4 Blood Pressure / Mean: Laboratory Tests 04/11/22 16:32: Creatinine 1.05, INR Comment 1.0, Platelet Count 345, Total Bilirubin 0.6 Results/Orders Lab Results Laboratory Tests Test 04/11/22 16:32 Range/Units White Blood Count 7.4 4.3-11.0 10^3/uL Red Blood Count 4.11 3.80-5.11 10^6/uL Hemoglobin 11.3 L 11.5-16.0 g/dL Hematocrit 35 35-52 % Mean Corpuscular Volume 85 80-99 fL Mean Corpuscular Hemoglobin 28 25-34 pg Mean Corpuscular Hemoglobin Concent 32 32-36 g/dL Red Cell Distribution Width 17.0 H 10.0-14.5 % Platelet Count 345 130-400 10^3/uL Mean Platelet Volume 8.9 L 9.0-12.2 fL Immature Granulocyte % (Auto) 0 % Neutrophils (%) (Auto) 82 H 42-75 % Lymphocytes (%) (Auto) 15 12-44 % Monocytes (%) (Auto) 3 0-12 % Eosinophils (%) (Auto) 0 0-10 % Basophils (%) (Auto) 0 0-10 % Neutrophils # (Auto) 6.1 1.8-7.8 10^3/uL Lymphocytes # (Auto) 1.1 1.0-4.0 10^3/uL Monocytes # (Auto) 0.2 0.0-1.0 10^3/uL Eosinophils # (Auto) 0.0 0.0-0.3 10^3/uL Basophils # (Auto) 0.0 0.0-0.1 10^3/uL Immature Granulocyte # (Auto) 0.0 0.0-0.1 10^3/uL Prothrombin Time 14.0 12.2-14.7 SEC INR Comment 1.0 0.8-1.4 Activated Partial Thromboplast Time 23 L 24-35 SEC D-Dimer 7.81 H 0.00-0.49 UG/ML Sodium Level 134 L 135-145 MMOL/L Potassium Level 3.8 3.6-5.0 MMOL/L Chloride Level 101 98-107 MMOL/L Carbon Dioxide Level 23 21-32 MMOL/L Anion Gap 10 5-14 MMOL/L Blood Urea Nitrogen 14 7-18 MG/DL Creatinine 1.05 0.60-1.30 MG/DL Estimat Glomerular Filtration Rate 64 BUN/Creatinine Ratio 13 Glucose Level 120 H 70-105 MG/DL Calcium Level 8.3 L 8.5-10.1 MG/DL Corrected Calcium 9.0 8.5-10.1 MG/DL Magnesium Level 1.5 L 1.6-2.4 MG/DL Total Bilirubin 0.6 0.1-1.0 MG/DL Aspartate Amino Transf (AST/SGOT) 11 5-34 U/L Alanine Aminotransferase (ALT/SGPT) < 5 0-55 U/L Alkaline Phosphatase 74 40-136 U/L Troponin I < 0.30 <0.30 NG/ML Pro-B-Type Natriuretic Peptide 109.2 <125.0 PG/ML Total Protein 8.2 6.4-8.2 GM/DL Albumin 3.1 L 3.2-4.5 GM/DL Influenza Type A (RT-PCR) Not Detected Not Detecte Influenza Type B (RT-PCR) Not Detected Not Detecte SARS-CoV-2 RNA (RT-PCR) Not Detected Not Detecte My Orders Orders - ARAVIND LENNON MD Cbc With Automated Diff (04/11/22 16:28) Comprehensive Metabolic Panel (04/11/22 16:28) Fibrin Degradation Products (04/11/22 16:28) Magnesium (04/11/22 16:28) Protime With Inr (04/11/22 16:28) Partial Thromboplastin Time (04/11/22 16:28) Influenza A And B By Pcr (04/11/22 16:28) Probnp Fs (04/11/22 16:28) Troponin I Fs (04/11/22 16:28) Chest 1 View Ap/Pa Only (04/11/22 16:28) Ekg Tracing (04/11/22 16:28) O2 (04/11/22 16:28) Monitor-Rhythm Ecg Trace Only (04/11/22 16:28) Ed Iv/Invasive Line Start (04/11/22 16:28) Covid 19 Inhouse Test (04/11/22 16:28) Blood Culture (04/11/22 16:28) Acetaminophen Tablet (Tylenol Tablet) (04/11/22 16:30) Lactic Acid Analyzer (04/11/22 16:28) Ns Iv 1000 Ml (Sodium Chloride 0.9%) (04/11/22 16:30) Cefepime Injection (Maxipime Injection) (04/11/22 16:30) Ns Iv 1000 Ml (Sodium Chloride 0.9%) (04/11/22 16:45) Ondansetron Injection (Zofran Injectio (04/11/22 17:15) Ondansetron Injection (Zofran Injectio (04/11/22 17:12) Iohexol Injection (Omnipaque 350 Mg/Ml 1 (04/11/22 18:15) Sodium Chloride Flush (Catheter Flush Sy (04/11/22 18:15) Ns (Ivpb) (Sodium Chloride 0.9% Ivpb Bag (04/11/22 18:15) Received Contrast (Hold Metformin- Contr (04/11/22 18:15) Ct Angio Chest W (R/O Pe) (04/11/22 18:02) Ed Admission (Communication) (04/11/22 19:16) Medications Given in ED Current Medications Medications Dose Ordered Sig/Bernarda Route Start Time Stop Time Status Last Admin Dose Admin Acetaminophen 1,000 mg ONCE PRN PO 04/11/22 16:30 04/11/22 17:09 DC 04/11/22 17:09 1,000 MG Cefepime HCl 1000 mg/Sodium Chloride 50 ml @ 100 mls/hr ONCE ONCE IV 04/11/22 16:30 04/11/22 16:59 DC 04/11/22 17:08 100 MLS/HR Iohexol 100 ml ONCE ONCE IV 04/11/22 18:15 04/11/22 18:26 DC 04/11/22 19:07 100 ML Ondansetron HCl 4 mg ONCE ONCE IVP 04/11/22 17:15 04/11/22 17:16 DC 04/11/22 17:15 4 MG Sodium Chloride 10 ml NEEDED PRN IV 04/11/22 18:15 04/11/22 19:07 10 ML Sodium Chloride 100 ml ONCE ONCE IV 04/11/22 18:15 04/11/22 18:26 DC 04/11/22 19:07 100 ML Vital Signs/I&O 04/11/22 04/11/22 04/11/22 16:21 16:21 16:21 Temp 38.2 Pulse 140 Resp 20 B/P (MAP) 115/57 (76) Pulse Ox 98 98 O2 Delivery Nasal Cannula Nasal Cannula Nasal Cannula O2 Flow Rate 2.00 2.00 2.00 Capillary Refill : Progress Note : Progress Note 52-year-old female with above history coming in due to respiratory issues. The patient was hypoxic on presentation and placed on 2 L of oxygen initially and titrated up to 4 L based on needs. She was tachycardic to the 130s. An IV was placed and she was given 2 L of IV fluids with improvement to around 115. Basic labs significant for normal white blood cell count, elevated dimer, normal creatinine, negative COVID and flu test. CTA chest with no large PE on my interpretation. She was given IV cefepime given her fever with immunocompromise status with her history of lupus. I contacted Dr. Ortiz who will admit her to the intensive care unit under inpatient status. I also contacted the ICU physician for signout. ECG Initial ECG Impression Date: Apr 11, 2022 Initial ECG Impression Time: 16:40 Initial ECG Rate: 137 Initial ECG Rhythm: S.Tach Comment Narrow QRS, normal axis, no significant STEMI or T wave inversion Diagnostic Imaging Diagonstic Imaging: Xray (chest), CT (angio chest) [facility] [place] [place] NAME: IAN WORTHINGTON [facility] REC#: [id number] PT STATUS: REG ER : 1970 PHYSICIAN: ARAVIND LENNON MD ADMIT DATE: 04/11/22/ER FS Signed Date of Exam:04/11/22 CHEST 1 VIEW AP/PA ONLY INDICATION: Dyspnea. TECHNIQUE: Upright portable AP view of the chest is obtained. FINDINGS: Heart size is within normal limits. Pulmonary vascularity is prominent with perihilar interstitial markings which may represent edema or pneumonitis. There is no evidence of lobar consolidation. No pneumothorax or pleural fluid is seen. IMPRESSION: Perihilar atelectasis and/or pneumonitis. Clinical correlation and short-term follow-up would be of use. Dictated by: Dictated on workstation # [id number] Dict: 04/11/221645 Trans: 04/11/221651 AS6 [id number] Interpreted by: AMILCAR MCCORMICK MD Electronically signed by: AMILCAR MCCORMICK MD 04/11/221651 [facility] [place] [place] NAME: IAN WORTHINGTON [facility] REC#: [id number] PT STATUS: REG ER : 1970 PHYSICIAN: ARAVIND LENNON MD ADMIT DATE: 04/11/22/ER FS Draft Date of Exam:04/11/22 CT ANGIO CHEST W (R/O PE) EXAM: CT ANGIO CHEST W (R/O PE) TECHNIQUE: 3-D reconstructions, including MIPS, the angiographic images are created and reviewed by the radiologist INDICATION: Hypoxia. Shortness of breath. History of DVT and lupus. COMPARISON: CT chest with IV contrast 01/15/2020. FINDINGS: Examination limited by both contrast timing and respiratory motion throughout the exam. No large or central pulmonary artery filling defects. Ectasia of the central pulmonary arteries suggesting pulmonary arterial hypertension. There is also some ectasia of the ascending thoracic aorta which measures up to 4.0 cm in diameter. Mild dependent atelectasis in both lungs which are otherwise clear. No pleural effusion or pneumothorax. Normal heart size. No pericardial effusion. No mediastinal or hilar lymphadenopathy. Diffuse left axillary lymphadenopathy measuring up to 1.9 cm. The breasts are not included in the [id number]-iw-owdz. Multiple renal stones in the partially visualized bilateral kidneys. No acute osseous findings. IMPRESSION: 1. Examination limited by contrast timing and respiratory motion. No large or central pulmonary emboli. 2. Ectasia of the central pulmonary arteries has progressed since 2019 and is suggestive of pulmonary arterial hypertension. 3. Stable ectasia of the ascending thoracic aorta measuring up to 4.0 cm in diameter. 4. Diffuse left axillary lymphadenopathy was present on the 2019 exam but has progressed since that time. The breasts are not included within the [id number]-md-[id number]. Recommend correlation with clinical history and findings. 5. Multiple renal stones in the partially visualized bilateral kidneys. Dictated on workstation # [id number] Dict: 04/11/221911 Trans: 04/11/221925 [facility] [id number] Interpreted by: IRENE BARBOZA MD Electronically signed by: Departure Impression Primary Impression: Respiratory failure Qualified Codes: J96.01 - Acute respiratory failure with hypoxia Additional Impression: Severe sepsis Disposition: 30 STILL A PATIENT Condition: Stable Admissions Decision to Admit Reason: Admit from ER (General) Decision to Admit/Date: Apr 11, 2022 Time/Decision to Admit Time: 18:50 Transfer Method of Transfer: EMS Departure-Patient Inst. Referrals: CIPRIANO SWIFT MD (PCP/Family) Primary Care Physician ARAVIND LENNON MD Apr 11, 2022 16:34
[2022-04-11 16:49] LABS: BASOPHILS % (AUTO) 0 % (0-10); EOSINOPHILS % (AUTO) 0 % (0-10); HEMATOCRIT 35 % (35-52); HEMOGLOBIN 11.3 g/dL (11.5-16.0); LYMPHOCYTES # (AUTO) 1.1 10^3/uL (1.0-4.0); LYMPHOCYTES % (AUTO) 15 % (12-44); MEAN CORPUSCULAR HEMOGLOBIN 28 pg (25-34); MEAN CORPUSCULAR HGB CONC 32 g/dL (32-36); MEAN CORPUSCULAR VOLUME 85 fL (80-99); MEAN PLATELET VOLUME 8.9 fL (9.0-12.2); MONOCYTES # (AUTO) 0.2 10^3/uL (0.0-1.0); MONOCYTES % (AUTO) 3 % (0-12); NEUTROPHILS # (AUTO) 6.1 10^3/uL (1.8-7.8); NEUTROPHILS % (AUTO) 82 % (42-75); PLATELET COUNT 345 10^3/uL (130-400); WHITE BLOOD COUNT 7.4 10^3/uL (4.3-11.0)
--- NOTE | 2022-04-11 16:49 | Diagnostic Imaging Report ---
INDICATION: Dyspnea. TECHNIQUE: Upright portable AP view of the chest is obtained. FINDINGS: Heart size is within normal limits. Pulmonary vascularity is prominent with perihilar interstitial markings which may represent edema or pneumonitis. There is no evidence of lobar consolidation. No pneumothorax or pleural fluid is seen. IMPRESSION: Perihilar atelectasis and/or pneumonitis. Clinical correlation and short-term follow-up would be of use. Dictated by: Dictated on workstation # [id number]
[2022-04-11] MEDS ORDERED: ONDANSETRON 4 MG/2 ML (SDV) Z0FRAN ONE (17:12)
[2022-04-11] MEDS ORDERED: ONDANSETRON 4 MG/2 ML (SDV) Z0FRAN IVP ONE (17:15)
[2022-04-11 17:35] LABS: ALANINE AMINOTRANSFERASE < 5 U/L (0-55); ALKALINE PHOSPHATASE 74 U/L (40-136); BILIRUBIN,TOTAL 0.6 MG/DL (0.1-1.0); BUN/CREATININE RATIO 13; CALCIUM 8.3 MG/DL (8.5-10.1); CARBON DIOXIDE 23 MMOL/L (21-32); CHLORIDE 101 MMOL/L (98-107); CREATININE SERUM 1.05 MG/DL (0.60-1.30); GFR ESTIMATED 64; GLUCOSE 120 MG/DL (70-105); MAGNESIUM 1.5 MG/DL (1.6-2.4); POTASSIUM 3.8 MMOL/L (3.6-5.0); SODIUM 134 MMOL/L (135-145)
[2022-04-11 17:36] LABS: ALBUMIN 3.1 GM/DL (3.2-4.5); TOTAL PROTEIN 8.2 GM/DL (6.4-8.2)
[2022-04-11] MEDS ORDERED: CATHETER FLUSH 10 ML SYR IV PRN (18:15)
[2022-04-11] MEDS ORDERED: NS 100 ML (IVPB) BAG IV ONE (18:15)
[2022-04-11] MEDS ORDERED: HOLD METFORMIN - RECEIVED CONTRAST 20 ML VIAL IV SCH (18:15)
[2022-04-11] MEDS ORDERED: IOHEXOL 350 MG/ML 100 ML (OMNIPAQUE 350) VIAL IV ONE (18:15)
[2022-04-11 18:26] LABS: FIBRIN DEGRADATION PRODUCTS 7.81 UG/ML (0.00-0.49)
--- NOTE | 2022-04-11 19:27 | Diagnostic Imaging Report ---
EXAM: CT ANGIO CHEST W (R/O PE) TECHNIQUE: 3-D reconstructions, including MIPS, the angiographic images are created and reviewed by the radiologist INDICATION: Hypoxia. Shortness of breath. History of DVT and lupus. COMPARISON: CT chest with IV contrast 01/15/2020. FINDINGS: Examination limited by both contrast timing and respiratory motion throughout the exam. No large or central pulmonary artery filling defects. Ectasia of the central pulmonary arteries suggesting pulmonary arterial hypertension. There is also some ectasia of the ascending thoracic aorta which measures up to 4.0 cm in diameter. Mild dependent atelectasis in both lungs which are otherwise clear. No pleural effusion or pneumothorax. Normal heart size. No pericardial effusion. No mediastinal or hilar lymphadenopathy. Diffuse left axillary lymphadenopathy measuring up to 1.9 cm. The breasts are not included in the [id number]. Multiple renal stones in the partially visualized bilateral kidneys. No acute osseous findings. IMPRESSION: 1. Examination limited by contrast timing and respiratory motion. No large or central pulmonary emboli. 2. Ectasia of the central pulmonary arteries has progressed since 2019 and is suggestive of pulmonary arterial hypertension. 3. Stable ectasia of the ascending thoracic aorta measuring up to 4.0 cm in diameter. 4. Diffuse left axillary lymphadenopathy was present on the 2019 exam but has progressed since that time. The breasts are not included within the [id number]. Recommend correlation with clinical history and findings. 5. Multiple renal stones in the partially visualized bilateral kidneys. Dictated by: Dictated on workstation # [id number]
[2022-04-11] MEDS ORDERED: polyethylene glycoL POWDER 17 GM (MIRALAX) PACK PO PRN (23:15)
[2022-04-11] MEDS ORDERED: ONDANSETRON 4 MG/2 ML (SDV) Z0FRAN IV PRN (23:15)
[2022-04-11] MEDS ORDERED: ACETAMINOPHEN 325 MG TABLET PO PRN (23:15)
[2022-04-11] MEDS ORDERED: NS IV 500 ML 500 ML IV PRN (23:15)
[2022-04-11] MEDS ORDERED: diphenhydrAMINE 50 MG/ML INJ (BENADRYL) IVP PRN (23:15)
[2022-04-11] MEDS ORDERED: ANTACID SUSP 30 ML UDC (MYLANTA) PO PRN (23:15)
[2022-04-11] MEDS ORDERED: ONDANSETRON 4 MG (ZOFRAN) ORAL DISSOLVE TAB PO PRN (23:15)
[2022-04-11] MEDS ORDERED: MELATONIN 3 MG TABLET PO PRN (23:15)
[2022-04-11] MEDS ORDERED: HYDROmorphone 2 MG/ML VIAL (DILAUDID) IV PRN (23:15)
[2022-04-11] MEDS ORDERED: diphenhydrAMINE 25 MG TAB (BENADRYL) PO PRN (23:15)
[2022-04-11] MEDS ORDERED: BISACODYL 10 MG SUPP (DULCOLAX) PR PRN (23:15)
[2022-04-11] MEDS ORDERED: VANCOMYCIN INJECTION 0.1 MG in NS (IVPB) 250 ML IV SCH (23:15)
--- NOTE | 2022-04-11 23:41 | Tele-ICU Progress Note ---
Subjective Date Seen by a Provider: Apr 11, 2022 Subjective/Events-last exam This virtual visit was conducted using real time audio/video. Thank you for asking us to see this patient for respiratory insufficiency due to unclear mechanisms. ? AECOPD or lupus flare. Recent events: transferred from [facility]. PMH: SLE on Methotrexate, DVT x 2, GERD, ?COPD. SH: smoking history: former heavy smoker FH: Non-contributory. ROS as in HPI PE: Appears comfortable, VSS. O2 sat on HEENT: No obvious masses, adenopathy or JVD. Chest: clear to auscultation. CV: RRR S1 S2 No murmur or added sounds. Abd: Non-tender. Bowel sounds Y. : Unremarkable. Calderón N. 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 No obvious focal findings. Extremities: edema. Capillary refill < 3 seconds. Skin: unremarkable. Results: Elevated BG 120, D-Dimer 7.81. Decreased Hb 11.3, Mag 1.5. Flu and Covid serology negative. CXR: some hyperinflation, increased interstitial markings. CTAC neg for PE, no infiltrate. Available chart/ vitals / labs / images reviewed. Video assessment done using teleICU camera, rest of exam as per RN. A/P: Respiratory insufficiency: Continue present management with O2. Will add Duonebs. Monitor for increasing oxygenation needs and/or need for intubation. Critical Care: critically ill patient. Cont. abx. Received 2 liters IVF at [facility]. Discussed with NA Akers. Asked RN to reach out to eICU if any questions or concerns later. Time spent with patient/coordination of care with other health professionals ( mins): 25 Sepsis Event Evaluation Height, Weight, BMI Height: 5'4.00" Weight: 252lbs. oz. 114.992548ji; 42.00 BMI Method:Stated Focused Exam Lactate Level 04/11/22 19:49: Lactic Acid Level 1.05 Time of Focused Exam: 18:00 Lactic Acid Level Laboratory Tests Test 04/11/22 19:49 Lactic Acid Level 1.05 MMOL/L (0.50-2.00) Exam Exam Patient acknowledged, consented, and participated in this virtual visit which was conducted using real time audio/video Vital Signs Date Time Temp Pulse Resp B/P (MAP) Pulse Ox O2 Delivery O2 Flow Rate FiO2 04/11/22 22:14 109 22 104/61 94 Room Air 04/11/22 16:21 Nasal Cannula 2.00 04/11/22 16:21 98 Nasal Cannula 2.00 04/11/22 16:21 38.2 140 20 115/57 (76) 98 Nasal Cannula 2.00 Height & Weight Height: 5'4.00" Weight: 252lbs. oz. 114.845688ip; 42.00 BMI Method:Stated General Appearance: WD/WN, Mild Distress HEENT: PERRL/EOMI, Normal ENT Inspection, Pharynx Normal Neck: Full Range of Motion, Normal Inspection, Non Tender, Supple Respiratory: Chest Non Tender, Lungs Clear, Normal Breath Sounds, Other (Increased respiratory rate) Cardiovascular: No Edema, Normal Peripheral Pulses, Tachycardia Capillary Refill: Less Than 3 Seconds Peripheral Pulses: 2+ Radial Pulses (R), 2+ Radial Pulses (L) Extremity: Normal Capillary Refill, Normal Inspection, Normal Range of Motion, Non Tender, No Calf Tenderness, No Pedal Edema Neurologic/Psychiatric: Alert, No Motor/Sensory Deficits, Normal Mood/Affect Lymphatic: No Adenopathy Results Lab Laboratory Tests 04/11/22 16:32 Assessment/Plan Assessment/Plan See free text. Critical Care: Critically Ill Patient ASHLEY TOTH MD Apr 11, 2022 23:41
[2022-04-12] MEDS: ENOXAPARIN 120 MG/0.8 ML (LOVENOX) SQ SCH ×2 (00:20→12:44)
[2022-04-12] MEDS: NS IV 1000 ML 1,000 ML IV SCH ×2 (00:20→08:18)
[2022-04-12] MEDS: CEFEPIME 1,000 MG/NS 50 ML IVPB IV SCH ×8 (00:20→18:27)
[2022-04-12] MEDS: VANCOMYCIN 1 GM/NS 250 ML IVPB IV SCH ×6 (01:35→12:45)
[2022-04-12] MEDS: RT-ALBUTEROL/IPRATROPIUM 3 ML (DUONEB) VIAL INH SCH ×6 (02:21→22:12)
[2022-04-12 04:54] LABS: BASOPHILS % (AUTO) 0 % (0-10); EOSINOPHILS % (AUTO) 0 % (0-10); HEMATOCRIT 31 % (35-52); HEMOGLOBIN 9.7 g/dL (11.5-16.0); LYMPHOCYTES # (AUTO) 1.4 10^3/uL (1.0-4.0); LYMPHOCYTES % (AUTO) 23 % (12-44); MEAN CORPUSCULAR HEMOGLOBIN 28 pg (25-34); MEAN CORPUSCULAR HGB CONC 32 g/dL (32-36); MEAN CORPUSCULAR VOLUME 89 fL (80-99); MEAN PLATELET VOLUME 8.9 fL (9.0-12.2); MONOCYTES # (AUTO) 0.3 10^3/uL (0.0-1.0); MONOCYTES % (AUTO) 4 % (0-12); NEUTROPHILS # (AUTO) 4.6 10^3/uL (1.8-7.8); NEUTROPHILS % (AUTO) 73 % (42-75); PLATELET COUNT 315 10^3/uL (130-400); WHITE BLOOD COUNT 6.3 10^3/uL (4.3-11.0)
[2022-04-12] MEDS: KCL 20 MEQ TAB (K-DUR) PO SCH (04:58)
[2022-04-12 05:09] LABS: ALBUMIN 2.8 GM/DL (3.2-4.5); POTASSIUM 3.8 MMOL/L (3.6-5.0)
[2022-04-12 05:10] LABS: CALCIUM 7.9 MG/DL (8.5-10.1)
[2022-04-12 05:11] LABS: TOTAL PROTEIN 7.4 GM/DL (6.4-8.2)
[2022-04-12 05:13] LABS: BILIRUBIN,TOTAL 0.4 MG/DL (0.1-1.0)
[2022-04-12 05:15] LABS: CREATININE SERUM 0.94 MG/DL (0.60-1.30)
[2022-04-12 05:17] LABS: MAGNESIUM 1.6 MG/DL (1.6-2.4)
[2022-04-12] MEDS ORDERED: POTASSIUM CL 10MEQ/50ML IVPB 50 ML IV SCH (06:00)
[2022-04-12] MEDS ORDERED: MAGNESIUM 1 GM/100 ML IVPB 100 ML IV SCH (06:00)
[2022-04-12] MEDS: MAGNESIUM 1 GM/100 ML IVPB 100 ML IV SCH ×2 (06:49→08:18)
[2022-04-12] MEDS ORDERED: CEFEPIME INJECTION 2,000 MG in NS (IVPB) 50 ML IV SCH (09:00)
[2022-04-12] MEDS: DOCUSATE SODIUM 100 MG (COLACE) CAP PO SCH ×2 (09:00→21:00)
--- NOTE | 2022-04-12 09:14 | Tele-ICU Progress Note ---
Subjective Date Seen by a Provider: Apr 12, 2022 Subjective/Events-last exam (Tele-ICU Physician , Progress Note ) Service provided via interactive audio and video telecommunications E-CARE system to a patient admitted to ICU bed in [facility]. Available chart/ vitals / labs / Images reviewed Video assessment done using teleICU camera, rest of exam as per RN Discussed with RN Events overnight : Afebrile hemodynamically stable Respiratory - I/O = Drips: Pressors- no (04/11) 52/F- Hypoxic from OSH. Septic protocols, temp. 4 liters nc, SLE hx. Pulm. Htn. and pneumonitis on imaging. A/P Acute resp hypoxic failure ( CTA neg for PE ) - in 4 l - on lovenox full dose - to readress afyt US - decrease IVF , IS , nebs , abx - to wean off o2 Pneumonia/pneumonitis on CT - viral panel neg - cefepime , vanco withsuspected immunocompromized state wiht SLE Elev Ddimer - neg PE on CTA - US LE pending -- on lovenox full dose , with h/o prior DVTs Anemia - delutional , 4 l NS Suspected TIMOTHY - re-eval as outpt H/o SLE - ? on immonomodulators tachycardia - improving Lines : periph , (Central Line Necessity Reviewed) Calderón: void OG: Nutrition: Analgesia: Anxiety/ delirium VTE Prophylaxis: megha full dose Stress Ulcer Prophylaxis: na Plans in collaboration with bedside consultants and IM MDs. Discussed with RN to reach out if any questions or concerns A total of 25 minutes of critical care time was devoted to this patient today, required to treat and/or prevent further deterioration of critical care condition ( as above ) . I am remotely monitoring this patient from another state. I am unable to do the bedside exam, and history/physical and pertinent information is taken from other notes in the computer and bedside staff. Sepsis Event Evaluation Height, Weight, BMI Height: 5'4.00" Weight: 252lbs. oz. 114.464628dy; 42.74 BMI Method:Stated Focused Exam Lactate Level 04/11/22 19:49: Lactic Acid Level 1.05 Time of Focused Exam: 18:00 Exam Exam Patient acknowledged, consented, and participated in this virtual visit which was conducted using real time audio/video Vital Signs Date Time Temp Pulse Resp B/P (MAP) Pulse Ox O2 Delivery O2 Flow Rate FiO2 04/12/22 08:21 95 Nasal Cannula 4.00 04/12/22 08:00 114 18 124/68 (86) 93 Nasal Cannula 3.00 04/12/22 08:00 36.8 04/12/22 07:24 102 04/12/22 07:19 95 Nasal Cannula 4.00 04/12/22 07:00 101 19 115/81 (92) 98 Nasal Cannula 3.00 04/12/22 06:00 102 22 110/68 (82) 97 Nasal Cannula 3.00 04/12/22 05:00 102 19 102/64 (77) 94 Nasal Cannula 3.00 04/12/22 04:00 96 Nasal Cannula 4.00 04/12/22 04:00 104 18 108/93 (98) 94 Nasal Cannula 3.00 04/12/22 03:00 116 17 116/83 (94) 95 Nasal Cannula 3.00 04/12/22 02:21 99 Nasal Cannula 3.00 04/12/22 02:15 Nasal Cannula 3.00 04/12/22 02:00 109 18 120/75 (90) 97 Nasal Cannula 4.00 04/12/22 01:00 114 04/12/22 01:00 110 19 123/73 (90) 93 Nasal Cannula 4.00 04/12/22 00:00 108 16 110/59 (76) 96 Nasal Cannula 4.00 04/11/22 23:58 107 04/11/22 23:47 99 Nasal Cannula 4.00 04/11/22 23:45 102 16 110/59 (76) 96 Nasal Cannula 4.00 04/11/22 23:42 105 99 04/11/22 23:30 112 21 118/82 (94) 96 Nasal Cannula 4.00 04/11/22 23:20 37.0 Nasal Cannula 4.00 04/11/22 23:15 99 Nasal Cannula 4.00 04/11/22 23:15 108 15 108/77 (87) 95 Nasal Cannula 4.00 04/11/22 23:00 108 15 121/74 (90) 95 Nasal Cannula 4.00 04/11/22 22:14 109 22 104/61 94 Room Air 04/11/22 16:21 Nasal Cannula 2.00 04/11/22 16:21 98 Nasal Cannula 2.00 04/11/22 16:21 38.2 140 20 115/57 (76) 98 Nasal Cannula 2.00 I & O 04/12/22 07:00 Intake Total 3250 ml Balance 3250 ml Height & Weight Height: 5'4.00" Weight: 252lbs. oz. 114.235063ba; 42.74 BMI Method:Stated General Appearance: WD/WN, Mild Distress HEENT: PERRL/EOMI, Normal ENT Inspection, Pharynx Normal Neck: Full Range of Motion, Normal Inspection, Non Tender, Supple Respiratory: Chest Non Tender, Lungs Clear, Normal Breath Sounds, Other (Increased respiratory rate) Cardiovascular: No Edema, Normal Peripheral Pulses, Tachycardia Capillary Refill: Less Than 3 Seconds Peripheral Pulses: 2+ Radial Pulses (R), 2+ Radial Pulses (L) Extremity: Normal Capillary Refill, Normal Inspection, Normal Range of Motion, Non Tender, No Calf Tenderness, No Pedal Edema Neurologic/Psychiatric: Alert, No Motor/Sensory Deficits, Normal Mood/Affect Lymphatic: No Adenopathy Results Lab Laboratory Tests 04/11/22 16:32 04/12/22 04:27 Assessment/Plan Assessment/Plan 1 IZABEL MOURA MD Apr 12, 2022 09:14
--- NOTE | 2022-04-12 09:19 | Diagnostic Imaging Report ---
PROCEDURE: US Venous Lower Ext Yuniel. TECHNIQUE: Multiple real-time grayscale images were obtained over the lower extremities in various projections, bilaterally. Additional duplex Doppler and color Doppler images were also obtained. INDICATION: Pain and swelling. FINDINGS: The common femoral, femoral, popliteal veins and tibial veins demonstrate normal response to compression, augmentation and Valsalva. There are no abnormal lower extremity fluid collections or masses. IMPRESSION: No evidence of deep venous thrombosis in either lower extremity. Dictated by: Dictated on workstation # [id number]
[2022-04-12] MEDS ORDERED: LEVO25TA5 PO (11:11)
[2022-04-12] MEDS ORDERED: POTA99CA PO (11:13)
[2022-04-12] MEDS ORDERED: FURO20TA4 PO (11:13)
[2022-04-12] MEDS ORDERED: LEVO5TAB28 PO (11:14)
[2022-04-12] MEDS ORDERED: IBUP-2473 PO (11:14)
[2022-04-12] MEDS ORDERED: NAPR-1070 PO (11:15)
[2022-04-12] MEDS ORDERED: FAMO-275 PO (11:18)
--- NOTE | 2022-04-12 11:54 | Diagnostic Imaging Report ---
INDICATION: Dyspnea. COMPARISON: 04/11/2022. TECHNIQUE: Single radiograph of the chest dated 04/12/2022. FINDINGS: The cardiac silhouette is stable. No significant pulmonary vascular congestion. Slightly increasing left basilar interstitial opacities are noted. The right lung appears clear of focal pulmonary opacity. No significant pleural effusion. No pneumothorax. No acute osseous abnormality. IMPRESSION: Increasing left basilar atelectasis and/or pneumonitis. Dictated by: Dictated on workstation # [id number]
[2022-04-12] MEDS: guaiFENesin/CODEINE (ROBITUSSIN AC) 10ML UDC PO PRN (12:44)
[2022-04-12] MEDS: BENZONATATE 100 MG (TESSALON) CAPSULE PO PRN ×2 (12:45→18:26)
[2022-04-12] MEDS ORDERED: NS IV 1000 ML 1,000 ML IV SCH (12:49)
--- NOTE | 2022-04-12 15:27 | History & Physical-Hospitalist ---
ALBAN ALFONSO 04/12/22 1527: History of Present Illness HPI/Chief Complaint Tiffanie Tamez is a 52yo F with past medical history of lupus on methotrexate, [place] PD, and prior DVTs who first came into the ED due to shortness of breath. She was in the high 80s on room air for oxygen saturation. They placed her on 2 L bringing her to the low 90s. She does not wear oxygen at home. She states she developed a fever, cough, shortness of breath since last night. Denies any vomiting, diarrhea, abdominal pain, chest pain, rash, other concerns. She was moved to the ICU and complained of left SCM muscle inflammation/edema, right pedal edema, and fatigue. She said she is breathing better with the help of her nasal cannula. Left lower lobe crackles were heard on auscultation and likely PNA confirmed by imaging, DVT was ruled out. She is high risk of sepsis from her immunocompromised state and will be held for a couple more days to administer abx and to monitor infection/bacteremia. Source: patient, EMS notes reviewed Date Seen 04/12/22 Time Seen by a Provider: 09:00 Attending Physician Alan Mccabe MD PCP Admitting Physician: Dorota Reeves DO Attending Physician: Dorota Reeves DO Referring Physician Date of Admission Apr 11, 2022 at 22:55 Home Medications & Allergies Home Medications Reviewed patient Home Medication Reconciliation performed by pharmacy medication reconciliations aerospace physiological technician and/or nursing. Patients Allergies have been reviewed. Allergies Allergies Coded Allergies No Known Drug Allergies (Iwsgjcjebb54/29/22) Past Lgxweow-Npwgud-Iiyzrh Hx Patient Social History Tobacco Use?: No Smoking Status: Former Smoker Smokeless Tobacco Frequency: Never a User Use of E-Cig and/or Vaping dev: No Use of E-Cig and/or Vaping Kendall: Never a User Substance use?: No Alcohol Use?: No Pt feels they are or have been: No Seasonal Allergies Seasonal Allergies: No Current Status status: No status: No Advance Directives: No Communicates: Verbally Primary Language: Romansh Preferred Spoken Language: Romansh Is interpretation needed?: No Implanted or Applied Medical D: None Past Medical History Surgeries: Adenoidectomy, Appendectomy, Section, Tonsillectomy COPD Sexually Transmitted Disease: No UTI-Chronic Gastroesophageal Reflux Arthritis Hypothyroidsim, Lupus Anxiety Recent Skin Changes Blood Disorders: No Family Medical History Patient reports no known family medical history. Other Conditions/Hx Review of Systems Constitutional: no symptoms reported EENTM: no symptoms reported Respiratory: see HPI, dyspnea on exertion, orthopnea, short of breath Cardiovascular: no symptoms reported Gastrointestinal: no symptoms reported Genitourinary: no symptoms reported Musculoskeletal: neck pain Skin: change in color, other (erythema of the left side of neck) Psychiatric/Neurological: Depressed, Weakness Physical Exam Physical Exam Vital Signs Vital Signs - First Documented Capillary Refill : Less Than 3 Seconds Height, Weight, BMI Height: 5'4.00" Weight: 252lbs. oz. 114.619166ed; 42.74 BMI Method:Stated General Appearance: No Apparent Distress, WD/WN Neck: Limited Range of Motion, Tender Lateral Respiratory: Chest Non Tender, No Accessory Muscle Use, No Respiratory Distress, Crackles Cardiovascular: No Gallop, No JVD, No Murmur, Tachycardia Gastrointestinal: Normal Bowel Sounds, No Organomegaly, No Pulsatile Mass, Non Tender, Soft Back: Normal Inspection, No CVA Tenderness, No Vertebral Tenderness Extremity: Normal Capillary Refill, Normal Range of Motion, Non Tender, No Calf Tenderness, Pedal Edema Neurologic/Psychiatric: Alert, Oriented x3, No Motor/Sensory Deficits, 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 Assessment/Plan Admission Diagnosis Assesment: SLE Immunocompromised state Acute Respiratory failure perihilar atelectasis Left lower lobe bacterial PNA Bacteremia/sepsis Left SCM somatic dysfunction TIMOTHY Anemia Plan: Abx regimen (cefepime, vancomycin) IV fluids Supplemental Oxygen CBC CMP Supportive Care Clinical Quality Measures DVT/VTE Risk/Contraindication: Contraindications-Mechi: Other *list below* Other: possible DVT DOROTA REEVES DO 04/13/22 0456: History of Present Illness Source: patient, EMS notes reviewed Past Foxcltb-Nhfmxf-Trmgke Hx Patient Social History Marrital Status: single Employed/Student: unemployed Family Medical History Patient reports no known family medical history. Review of Systems Constitutional: see HPI, malaise, weakness Physical Exam Physical Exam General Appearance: No Apparent Distress, Chronically ill Respiratory: No Accessory Muscle Use, No Respiratory Distress, Crackles, Wheezing Neurologic/Psychiatric: Alert, Oriented x3 Assessment/Plan Admission Diagnosis Admission Status: Inpatient Order (span 2 midnights) Reason for Inpatient Admission: Sepsis Supervisory-Addendum Brief Verification & Attestation Participated in pt care: history, MDM, physical Personally performed: exam, history, MDM, supervision of care Care discussed with: Medical Student Procedures: n/a Results interpretation: Verified all documentation Verification and Attestation of Medical Student E/M Service A medical student performed and documented this service in my presence. I reviewed and verified all information documented by the medical student and made modifications to such information, when appropriate. I personally performed the physical exam and medical decision making. Dorota Reeves Apr 13, 2022,04:56 ALBAN ALFONSO Apr 12, 2022 15:27 DOROTA REEVES DO Apr 13, 2022 04:56
[2022-04-12] MEDS ORDERED: NAPROXEN SODIUM PO PRN (16:00)
[2022-04-12] MEDS ORDERED: IBUPROFEN TABLET 200 MG TAB PO PRN (16:00)
[2022-04-12 16:55] VITALS: BP 113/68
[2022-04-12 20:32] VITALS: BP 110/72
[2022-04-12] MEDS ORDERED: NON-FORMULARY MEDICATION 1 EA EA (Potassium Citrate (Potassium) 99 MG) PO SCH (21:00)
[2022-04-13 00:08] VITALS: BP 124/59
[2022-04-13] MEDS: CEFEPIME 1,000 MG/NS 50 ML IVPB IV SCH ×4 (00:15→08:10)
[2022-04-13] MEDS: guaiFENesin/CODEINE (ROBITUSSIN AC) 10ML UDC PO PRN ×2 (00:16→21:49)
[2022-04-13] MEDS: rOPINIRole 1 MG (REQUIP) TABLET PO SCH ×2 (00:16→21:49)
[2022-04-13] MEDS: FAMOTIDINE 20 MG (PEPCID) TABLET PO SCH ×2 (00:17→21:50)
[2022-04-13] MEDS: LORATADINE (CLARITIN) 10 MG TAB PO SCH ×2 (00:17→21:49)
[2022-04-13] MEDS: ENOXAPARIN 120 MG/0.8 ML (LOVENOX) SQ SCH ×2 (00:21→12:24)
[2022-04-13] MEDS: VANCOMYCIN 1 GM/NS 250 ML IVPB IV SCH ×2 (01:45)
[2022-04-13] MEDS: RT-ALBUTEROL/IPRATROPIUM 3 ML (DUONEB) VIAL INH SCH ×6 (02:31→22:58)
[2022-04-13 04:11] VITALS: BP 137/63
[2022-04-13 06:27] LABS: BASOPHILS % (AUTO) 0 % (0-10); EOSINOPHILS % (AUTO) 0 % (0-10); HEMATOCRIT 31 % (35-52); HEMOGLOBIN 9.3 g/dL (11.5-16.0); LYMPHOCYTES # (AUTO) 1.6 10^3/uL (1.0-4.0); LYMPHOCYTES % (AUTO) 39 % (12-44); MEAN CORPUSCULAR HEMOGLOBIN 28 pg (25-34); MEAN CORPUSCULAR HGB CONC 30 g/dL (32-36); MEAN CORPUSCULAR VOLUME 91 fL (80-99); MONOCYTES # (AUTO) 0.2 10^3/uL (0.0-1.0); MONOCYTES % (AUTO) 5 % (0-12); NEUTROPHILS # (AUTO) 2.3 10^3/uL (1.8-7.8); NEUTROPHILS % (AUTO) 56 % (42-75); PLATELET COUNT 324 10^3/uL (130-400); WHITE BLOOD COUNT 4.1 10^3/uL (4.3-11.0)
[2022-04-13 06:45] LABS: ALBUMIN 2.6 GM/DL (3.2-4.5); BILIRUBIN,TOTAL 0.1 MG/DL (0.1-1.0); CALCIUM 8.2 MG/DL (8.5-10.1); CREATININE SERUM 0.85 MG/DL (0.60-1.30); MAGNESIUM 1.8 MG/DL (1.6-2.4); POTASSIUM 3.9 MMOL/L (3.6-5.0); TOTAL PROTEIN 7.1 GM/DL (6.4-8.2)
[2022-04-13] MEDS: LEVOTHYROXINE 25 MCG (LEVOTHROID) TAB PO SCH (08:10)
[2022-04-13] MEDS: LEVOTHYROXINE 100 MCG (LEVOTHROID) TAB PO SCH (08:12)
[2022-04-13] MEDS: KCL 20 MEQ TAB (K-DUR) PO SCH (08:14)
[2022-04-13 08:45] VITALS: BP 125/78
[2022-04-13] MEDS: DOCUSATE SODIUM 100 MG (COLACE) CAP PO SCH ×2 (09:30→21:48)
[2022-04-13] MEDS: FUROSEMIDE 20 MG (LASIX) TAB PO SCH (09:31)
[2022-04-13 11:28] VITALS: BP 116/68
[2022-04-13] MEDS ORDERED: CEFD300C3 PO (11:52)
[2022-04-13] MEDS ORDERED: GFCD10B PO (11:52)
[2022-04-13] MEDS ORDERED: BENZ100C18 PO (11:52)
[2022-04-13] MEDS: cefTRIAXone 1 GM PRE-MIX 50 ML IV SCH (12:24)
[2022-04-13] MEDS ORDERED: TROUGH ORDER-PHARMACY XX ONE (12:30)
--- NOTE | 2022-04-13 14:06 | Progress Note - Hospitalist ---
ALBAN ALFONSO 04/13/22 1406: Subjective HPI/CC On Admission Date Seen by Provider: Apr 13, 2022 Time Seen by Provider: 10:30 Sepsis/PNA Subjective/Events-last exam 04/12/22- Tiffanie Tamez is a 52yo F with past medical history of lupus on methotrexate, COPD, and prior DVTs who first came into the ED due to shortness of breath. She was in the high 80s on room air for oxygen saturation. They placed her on 2 L bringing her to the low 90s. She does not wear oxygen at home. She stated she developed a fever, cough, shortness of breath since last night. Denied any vomiting, diarrhea, abdominal pain, chest pain, rash, other concerns. She was moved to the ICU and complained of left SCM muscle inflammation/edema, right pedal edema, and fatigue. She said she is breathing better with the help of her nasal cannula. Left lower lobe crackles were heard on auscultation and likely PNA confirmed by imaging, DVT was ruled out. She was high risk of sepsis from her immunocompromised state and will be held for a couple more days to administer abx and to monitor infection/bacteremia. 2- Her labs have been regulated and her oxygen flow has been taken down to 2L, while discussing taking her off to monitor how she handles it. Micro labs showed Strep species and she was changed from cefepime/vancomycin to ceftriaxone. Her WBC is still low and her oxygen remains a little concerning so it was agreed to have her stay one more day. Review of Systems General: No Chills, No Night Sweats, No Fatigue, No Malaise, No Appetite HEENT: No Head Aches, No Visual Changes, No Eye Pain, No Ear Pain, No Dysphasia, No Sinus Congestion, No Post Nasal Drip, No Sore Throat Pulmonary: Dyspnea, Cough; No Pleuritic Chest Pain Cardiovascular: No: Chest Pain, Palpitations, Orthopnea, Paroxysmal Noc. D yspnea, Edema, Lt Headedness Gastrointestinal: No: Nausea, Vomiting, Abdominal Pain, Diarrhea, Constipation, Melena, Hematochezia Genitourinary: No Dysuria, No Frequency, No Incontinence, No Hematuria, No Retention, No Other Musculoskeletal: No: neck pain, shoulder pain, arm pain, back pain, hand pain, leg pain, foot pain Neurological: No: Weakness, Numbness, Incoordination, Change in speech, Confusion, Seizures, Other Focused Exam Lactate Level 04/11/22 19:49: Lactic Acid Level 1.05 Time of Focused Exam: 18:00 Objective Exam Vital Signs Vital Signs Date Time Temp Pulse Resp B/P (MAP) Pulse Ox O2 Delivery O2 Flow Rate FiO2 04/13/22 12:47 98 04/13/22 11:28 36.8 19 116/68 (84) 94 Nasal Cannula 2.00 Capillary Refill : Less Than 3 Seconds General Appearance: No Apparent Distress, WD/WN HEENT: PERRL/EOMI, TMs Normal, Normal ENT Inspection, Pharynx Normal Neck: Full Range of Motion, Normal Inspection, Non Tender, Supple Respiratory: Chest Non Tender, No Accessory Muscle Use, No Respiratory Distress, Crackles Cardiovascular: No Edema, No Gallop, No JVD, No Murmur, Tachycardia Gastrointestinal: Normal Bowel Sounds, No Organomegaly, No Pulsatile Mass, Non Tender, Soft Back: Normal Inspection, No CVA Tenderness, No Vertebral Tenderness Extremity: Normal Capillary Refill, Normal Inspection, Normal Range of Motion, Non Tender, No Calf Tenderness Neurologic/Psychiatric: Alert, Oriented x3, No Motor/Sensory Deficits, Depressed Affect Skin: Normal Color, Warm/Dry Lymphatic: No Adenopathy Results/Procedures Lab Laboratory Tests 04/13/22 05:50 Patient resulted labs reviewed. Assessment/Plan Assessment and Plan Assess & Plan/Chief Complaint Assesment: SLE Immunocompromised state Acute Respiratory failure perihilar atelectasis Left lower lobe bacterial PNA(streptococcus) Bacteremia/sepsis Left SCM somatic dysfunction TIMOTHY Anemia tachycardia Suspicious EKG of CT Plan: Abx regimen (ceftriaxone) IV fluids Supplemental Oxygen CBC CMP Supportive Care Troponin/BNP Clinical Quality Measures DVT/VTE Risk/Contraindication: Contraindications-Mechi: Other *list below* Other: possible DVT DOROTA REEVES DO 04/13/222128: Supervisory-Addendum Brief Verification & Attestation Participated in pt care: history, MDM, physical Personally performed: exam, history, MDM, supervision of care Care discussed with: Medical Student Procedures: n/a Results interpretation: Verified all documentation Verification and Attestation of Medical Student E/M Service A medical student performed and documented this service in my presence. I reviewed and verified all information documented by the medical student and made modifications to such information, when appropriate. I personally performed the physical exam and medical decision making. Dorota Reeves, Apr 13, 2022,21:29 ALBAN ALFONSO Apr 13, 2022 14:06 DOROTA REEVES DO Apr 13, 2022 21:29
[2022-04-13 15:14] VITALS: BP 110/69
[2022-04-13 19:06] VITALS: BP 116/71
[2022-04-14 00:26] VITALS: BP 121/74
[2022-04-14 02:33] VITALS: BP 121/74
[2022-04-14] MEDS ORDERED: RT-ALBUTEROL/IPRATROPIUM 3 ML (DUONEB) VIAL INH PRN (02:45)
[2022-04-14 04:00] VITALS: BP 126/83
--- NOTE | 2022-04-14 05:48 | Discharge Summary ---
Discharge Summary Hospital Course Was the Problem List Reviewed?: Yes Problems/Dx: (1) Pneumonia (2) Respiratory failure Status: Acute Qualifiers: Qualified Codes: J96.01 - Acute respiratory failure with hypoxia (3) Sepsis Status: Acute Hospital Course Date of Admission: Apr 11, 2022 at 22:55 Admission Diagnosis : Family Physician/Provider: Alan Mccabe MD Date of Discharge: 04/14/22 Discharge Diagnosis: [ ] Hospital Course: Complicated hospital course after she was admitted for sepsis in immunosuppressed state with presumed pneumonia which was confirmed on repeat chest x-ray after IV fluids due to dehydration resolution. She overall did very well and was able to regain enough function in order to transition to p.o. antibiotics and discharged in improved condition. Labs and Pending Lab Test: Laboratory Tests 04/13/22 05:50: White Blood Count 4.1L, Red Blood Count 3.38L, Hemoglobin 9.3L, Hematocrit 31L, Mean Corpuscular Volume 91, Mean Corpuscular Hemoglobin 28, Mean Corpuscular Hemoglobin Concent 30L, Red Cell Distribution Width 17.3H, Platelet Count 324, Mean Platelet Volume 9.0, Immature Granulocyte % (Auto) 1, Neutrophils (%) (Auto) 56, Lymphocytes (%) (Auto) 39, Monocytes (%) (Auto) 5, Eosinophils (%) (Auto) 0, Basophils (%) (Auto) 0, Neutrophils # (Auto) 2.3, Lymphocytes # (Auto) 1.6, Monocytes # (Auto) 0.2, Eosinophils # (Auto) 0.0, Basophils # (Auto) 0.0, Immature Granulocyte # (Auto) 0.0, Sodium Level 139, Potassium Level 3.9, Chloride Level 112H, Carbon Dioxide Level 21, Anion Gap 6, Blood Urea Nitrogen 11, Creatinine 0.85, Estimat Glomerular Filtration Rate 82, BUN/Creatinine Ratio 13, Glucose Level 113H, Calcium Level 8.2L, Corrected Calcium 9.3, Magnesium Level 1.8, Total Bilirubin 0.1, Aspartate Amino Transf (AST/SGOT) 13, Alanine Aminotransferase (ALT/SGPT) 9, Alkaline Phosphatase 55, Total Protein 7.1, Albumin 2.6L 04/13/22 13:23: Vancomycin Level Trough 4.5L Microbiology 04/11/22 MRSA Screen - Final, Complete MRSA not isolated 04/11/22 Blood Culture - Preliminary, Resulted Streptococcus pneumoniae Testing In Progress Home Meds Active Cefdinir 300 Mg Capsule 300 Mg PO BID Robitussin Ac (Codeine) Syrup (Guaifenesin/Codeine Phosphate) 10 Ml Syrp 10 Ml PO Q4H PRN Tessalon Perles (Benzonatate) 100 Mg Capsule 200 Mg PO TID PRN Reported Zantac-360 (Famotidine) (Famotidine) 20 Mg Tablet 20 Mg PO HS Anaprox Ds (Naproxen Sodium) 550 Mg Tablet 1,100 Mg PO DAILY PRN TAKES 2 (550MG) TABS Ibuprofen 200 Mg Tablet 400 Mg PO Q8H PRN TAKES 2 (200MG) TABS Xyzal (Levocetirizine Dihydrochloride) 5 Mg Tablet 5 Mg PO HS Potassium (Potassium Citrate) 99 Mg Capsule 99 Mg PO HS Furosemide 20 Mg Tablet 20 Mg PO DAILY Levothyroxine Sodium 25 Mcg Tablet 25 Mcg PO DAILY TAKES WITH 200MCG TO TOTAL 225MCG DAILY Ropinirole HCl 0.5 Mg Tablet 0.5 Mg PO HS Euthyrox (Levothyroxine Sodium) 200 Mcg Tablet 200 Mcg PO DAILY TAKES WITH 25MCG TO TOTAL 225MCG DAILY Citalopram HBr (Citalopram Hydrobromide) 20 Mg Tablet 20 Mg PO HS Assessment/Pt Instructions PCP in 1 week Discharge Planning: <30 minutes discharge planning Discharge Physical Examination Vital Signs Vital Signs Date Time Temp Pulse Resp B/P (MAP) Pulse Ox O2 Delivery O2 Flow Rate FiO2 04/14/22 04:00 36.4 97 16 126/83 (97) 95 Room Air 04/14/22 02:33 21 04/13/22 19:06 0.00 0.00 General Appearance: No Apparent Distress, WD/WN Allergies: Coded Allergies: No Known Drug Allergies (Unverified , 04/12/22) Discharge Summary Date of Admission Apr 11, 2022 at 22:55 Date of Discharge Discharge Date: Apr 14, 2022 Admission Diagnosis Clinical Quality Measures DVT/VTE Risk/Contraindication: Contraindications-Mechi: Other *list below* Other: possible DVT CHERYL REEVES DO Apr 14, 2022 05:48
[2022-04-14 06:37] LABS: BASOPHILS % (AUTO) 0 % (0-10); EOSINOPHILS % (AUTO) 0 % (0-10); HEMATOCRIT 31 % (35-52); HEMOGLOBIN 9.3 g/dL (11.5-16.0); LYMPHOCYTES # (AUTO) 1.4 10^3/uL (1.0-4.0); LYMPHOCYTES % (AUTO) 34 % (12-44); MEAN CORPUSCULAR HEMOGLOBIN 27 pg (25-34); MEAN CORPUSCULAR HGB CONC 30 g/dL (32-36); MEAN CORPUSCULAR VOLUME 90 fL (80-99); MEAN PLATELET VOLUME 9.2 fL (9.0-12.2); MONOCYTES # (AUTO) 0.2 10^3/uL (0.0-1.0); MONOCYTES % (AUTO) 5 % (0-12); NEUTROPHILS # (AUTO) 2.4 10^3/uL (1.8-7.8); NEUTROPHILS % (AUTO) 60 % (42-75); PLATELET COUNT 343 10^3/uL (130-400); WHITE BLOOD COUNT 4.1 10^3/uL (4.3-11.0)
[2022-04-14 06:51] LABS: ALBUMIN 2.6 GM/DL (3.2-4.5)
[2022-04-14 06:52] LABS: CALCIUM 8.1 MG/DL (8.5-10.1)
[2022-04-14 06:55] LABS: BILIRUBIN,TOTAL 0.1 MG/DL (0.1-1.0)
[2022-04-14 06:57] LABS: CREATININE SERUM 0.78 MG/DL (0.60-1.30)
[2022-04-14 07:23] VITALS: BP 128/75
[2022-04-14] MEDS: LEVOTHYROXINE 100 MCG (LEVOTHROID) TAB PO SCH (07:29)
[2022-04-14] MEDS: LEVOTHYROXINE 25 MCG (LEVOTHROID) TAB PO SCH (07:30)
[2022-04-14] MEDS: KCL 20 MEQ TAB (K-DUR) PO SCH (07:43)
[2022-04-14] MEDS ORDERED: RT-ALBUTEROL/IPRATROPIUM 3 ML (DUONEB) VIAL INH SCH (08:00)
[2022-04-14] MEDS: FUROSEMIDE 20 MG (LASIX) TAB PO SCH (09:10)
[2022-04-14] MEDS: DOCUSATE SODIUM 100 MG (COLACE) CAP PO SCH (09:11)
[2022-04-14] MEDS: cefTRIAXone 1 GM PRE-MIX 50 ML IV SCH (11:05)
[2022-04-14 11:48] VITALS: BP 132/72
[2022-04-14 11:55] VITALS: BP 132/72
[2022-04-14] MEDS: ENOXAPARIN 120 MG/0.8 ML (LOVENOX) SQ SCH ×2 (11:57)
== END 2022-04-14 11:55 | disposition home or self-care (01) | DRG 871 ==
LOC: EDUNIT# 16:21 → ER FS 16:22 → ICU 22:55 → 4TH 04-12 17:45
PROVIDERS: ADMIT Internal Medicine; ATTEND Internal Medicine
DX: A41.9 Sepsis, unspecified organism (principal); J18.9 Pneumonia, unspecified organism; J96.01 Acute respiratory failure with hypoxia; J44.0 Chronic obstructive pulmonary disease with (acute) lower respiratory infection; J98.11 Atelectasis; M32.9 Systemic lupus erythematosus, unspecified; M99.09 Segmental and somatic dysfunction of abdomen and other regions; G47.33 Obstructive sleep apnea (adult) (pediatric); D64.9 Anemia, unspecified; K21.9 Gastro-esophageal reflux disease without esophagitis; M19.90 Unspecified osteoarthritis, unspecified site; E03.9 Hypothyroidism, unspecified; F41.9 Anxiety disorder, unspecified; Z20.822 Contact with and (suspected) exposure to COVID-19; R65.20 Severe sepsis without septic shock; Z86.718 Personal history of other venous thrombosis and embolism
CPT/HCPCS: 36415; 71045; 71275; 80053; 80202; 83605; 83735; 83880; 84100; 84484; 85025; 85379; 85610; 85730; 87040; 87077; 87081; 87186; 87636; 93005; 93041; 93306; 93970; 94640; 94760; 96361; 96365; 96375; Q9967